=== PATIENT | female | born 1950 | race Caucasian/White ===

== ENCOUNTER → 2017-01-21 | Outpatient (CLI) | payer MEDICARE ==
--- NOTE | 2017-01-22 08:17 | REP ---
RIGHT FOOT: Four views of the right foot are performed. There is nondisplaced fracture at the distal aspect of the 1st proximal phalanx extending into the interphalangeal joint. No other acute fracture or dislocation is seen. Moderate-sized inferior calcaneal spur is present. There is slight narrowing the 1st metatarsophalangeal joint. IMPRESSION: Nondisplaced fracture distal aspect 1st proximal phalanx extending into the interphalangeal joint. Signed by Benjy Morin MD 01/22/2017 04:12 P
== END ==
LOC: M WUC 17:31
PROVIDERS: ATTEND Physician Assistant
DX: S92.414A Nondisplaced fracture of proximal phalanx of right great toe, initial encounter for closed fracture (principal); X58.XXXA Exposure to other specified factors, initial encounter; Y93.9 Activity, unspecified; Y92.9 Unspecified place or not applicable; Y99.8 Other external cause status

== ENCOUNTER 2017-08-28 14:09 | Emergency (ER) | payer MEDICARE ==
[~2017-08-28] VITALS: Ht 167.6 cm; Wt 62.7 kg
[2017-08-28 14:09] VITALS: BP 162/73
[2017-08-28] MEDS ORDERED: PROAAER10 (14:34)
[2017-08-28] MEDS ORDERED: COMBAER6 INH ×2 (14:34→16:47)
[2017-08-28] MEDS ORDERED: DOXY100T16 (14:34)
[2017-08-28] MEDS ORDERED: SYMB16INH INH (14:34)
[2017-08-28] MEDS ORDERED: CEFD1CAP8 PO (16:47)
[2017-08-28] MEDS ORDERED: FLON1SPR (16:47)
== END 2017-08-28 16:57 | disposition home or self-care (01) ==
LOC: M ED 14:09
DX: J45.901 Unspecified asthma with (acute) exacerbation (principal); J01.00 Acute maxillary sinusitis, unspecified; Z79.899 Other long term (current) drug therapy

== ENCOUNTER → 2018-03-29 | Outpatient (CLI) | payer MEDICARE | LOC: M WUC 15:53 | DX: J44.9 Chronic obstructive pulmonary disease, unspecified (principal) | CPT/HCPCS: 71046 ==

== ENCOUNTER 2019-07-15 10:54 | Inpatient (IN) | payer MEDICARE ==
[~2019-07-15] VITALS: Ht 167.6 cm; Wt 49.7 kg
[~2019-07-15 10:54] MED LIST: CEFD1CAP8 PO; COMBAER6 INH; DOXY100T16; FLON1SPR; PROAAER10 INH; SYMB16INH INH
[2019-07-15] MEDS ORDERED: FLUTISP NARES (11:03)
[2019-07-15] MEDS ORDERED: PRED10TA2 PO (11:03)
[2019-07-15] MEDS ORDERED: LISI10TA4 PO (11:03)
[2019-07-15] MEDS ORDERED: MONT10TA2 PO (11:03)
[2019-07-15] MEDS ORDERED: fentaNYL 100 MCG/2 ML INJECTION (J3010) IV ONE (11:30)
[2019-07-15] MEDS ORDERED: NS 500 ML IV ONE ×2 (11:30→12:30)
[2019-07-15] MEDS ORDERED: ONDANSETRON 4MG/2ML VIAL (J2405) IV ONE (11:30)
[2019-07-15 11:45] LABS: BASO # 0.1 10^3/uL (0.0-0.2); BASO % 0.2 % (0.0-1.0); EOS % 0.1 % (0.0-3.0); HEMATOCRIT 40.4 % (36.0-47.0); HEMOGLOBIN 13.8 g/dl (12.0-15.5); LYMPH # 1.8 10^3/uL (1.5-4.5); LYMPH % 7.5 % (24.0-44.0); MEAN CORPUSCULAR HEMOGLOBIN 33.3 pg (27.0-33.0); MEAN CORPUSCULAR HGB CONC 34.2 g/dl (32.0-36.5); MEAN CORPUSCULAR VOLUME 97.3 fl (80.0-96.0); MONO # 1.6 10^3/uL (0.0-0.8); MONO % 6.5 % (0.0-5.0); NEUTROPHILS # 20.9 10^3/uL (1.8-7.7); NEUTROPHILS % 85.2 % (36.0-66.0); PLATELET COUNT, AUTOMATED 282 10^3/uL (150-450); RED BLOOD COUNT 4.15 10^6/uL (4.00-5.40); WHITE BLOOD COUNT 24.5 10^3/uL (4.0-10.0)
[2019-07-15 11:55] LABS: INR 1.19; PROTHROMBIN TIME 14.8 SECONDS (11.8-14.0)
[2019-07-15 11:56] LABS: PARTIAL THROMBOPLASTIN TIME 31.7 SECONDS (25.0-38.4)
--- NOTE | 2019-07-15 12:04 | REP ---
Portable chest, 11:50 a.m., single AP view the patient semi upright: Comparison is the PA and lateral chest of six and 2018. There is chronic interstitial coarsening compatible with chronic lung disease. There are no acute infiltrates or effusions. There are no masses. Lung vaz otherwise clear. Cardiac size is normal. The brandan, mediastinum, skeletal structures are unremarkable. Impression: Chronic mild interstitial coarsening. No acute cardiopulmonary findings. Electronically Signed by Benjy Zhong MD 07/15/2019 11:56 A
[2019-07-15] MEDS ORDERED: ISOVUE-370 76% 100ML VIAL (Q9967) As Ordered ONE (12:12)
[2019-07-15] MEDS ORDERED: MEROPENEM INJ 1 GM in APPROPRIATE DILUENT 1 EA IV ONE (12:15)
[2019-07-15 12:23] LABS: ALBUMIN 3.8 GM/DL (3.2-5.2); ALT/SGPT 15 U/L (12-78); BILIRUBIN,DIRECT 0.2 MG/DL (0.0-0.2); BILIRUBIN,TOTAL 0.8 MG/DL (0.2-1.0); CK-MB VALUE MASS < 1.0 NG/ML (<3.6); CPK CREATINE PHOSPHOKINASE 26 U/L (26-192); LIPASE 62 U/L (73-393); MB/CK RELATIVE INDEX 3.85 (< OR =4); TOTAL PROTEIN 6.4 GM/DL (6.4-8.2); TROPONIN I < 0.02 NG/ML (< 0.10)
--- NOTE | 2019-07-15 13:47 | REP ---
CT ABDOMEN AND PELVIS WITH IV CONTRAST: TECHNIQUE: Axial contrast enhanced images from the lung bases to the pubic symphysis using 100 mL Isovue 370 intravenous contrast material with multiplanar reformations. Visualized lung bases demonstrate no evidence of acute infiltrate. The liver demonstrates multiple subcentimeter hypodensities probably representing tiny cysts or hemangiomas. Spleen demonstrates calcified granulomas. Linear calcifications are seen in the right adrenal gland. I see no evidence of adrenal mass. Pancreas is unremarkable. There is no pancreatic duct dilatation. Tiny subcentimeter hypodensity in each kidney probably represent tiny cysts. There is no hydronephrosis. Atherosclerotic calcification is seen of the abdominal aorta without aneurysm. I see no adenopathy or free air. There is diffuse thickening of the left colon which involves the entire splenic flexure, the entire left colon, extending into the proximal sigmoid colon. This represents nonspecific colitis. Scattered diverticula are seen throughout the sigmoid with multiple diverticula present. There are a few scattered diverticula of the left colon as well. The appendix is normal. I see no definite pelvic mass. There is mild free fluid in the pelvis. Urinary bladder is mildly distended and grossly unremarkable. There are degenerative changes of the spine. IMPRESSION: Diffuse left sided colitis which is nonspecific. There are multiple sigmoid diverticula and a few diverticula of the left colon. I suspect the colitis is due to an inflammatory, infectious or ischemic etiology. Mild free fluid in the pelvis. No free air. Electronically Signed by Benjy Morin MD 07/16/2019 12:07 A
[2019-07-15] MEDS ORDERED: MAALOX 30 ML SUSP *UDC PO PRN (14:00)
[2019-07-15] MEDS ORDERED: MOM 30ML SUSPENSION UDC PO PRN (14:00)
[2019-07-15] MEDS ORDERED: LevoFLOXacin IV 500 MG in APPROPRIATE DILUENT 1 EA IV ONE (14:15)
[2019-07-15] MEDS ORDERED: ACET-683 PO (14:17)
[2019-07-15] MEDS ORDERED: CALC600T18 PO (14:17)
[2019-07-15] MEDS ORDERED: VITMTA PO (14:17)
[2019-07-15] MEDS ORDERED: REST0.05 OU (14:17)
[2019-07-15] MEDS ORDERED: [UNRECOGNIZED DRUG - CODE] PO (14:17)
[2019-07-15] MEDS ORDERED: CVS7.6LO MT (14:17)
[2019-07-15] MEDS ORDERED: MUCI600T31 PO (14:17)
[2019-07-15] MEDS ORDERED: [UNRECOGNIZED DRUG - CODE] PO (14:17)
[2019-07-15] MEDS ORDERED: MORPHINE 4 MG/ML 1ML VIAL/SYRINGE (J2270) IV PRN (15:15)
--- NOTE | 2019-07-15 15:38 | HPEPDOC ---
General Date of Admission 07/15/19 Date of Service: Jul 15, 2019 Primary Care Physician: Carolina Roger H Attending Physician: SAMIR HENAO DO Chief Complaint The patient is a 69-year-old female admitted with a reason for visit of Bloody Stool. Source: Patient, Family History of Present Illness 69 yo female with history of HTN, COPD presented to ED with abdomen pain for 2 days and bright red blood per rectum. Patient states has had weight loss over past 9 month (unintentional) from 132# to 118# (14 pounds). She states 2 days ago had large stool wtih pain and BRBPR. States nothing made it better or worse. States abdomen pain x 2 days comes and goes in waves. Chronic dull achy with intermittent sharp pain that travels from right to left. Yesterday AM had non painful diarrhea x 3 mixed with bright red blood. Today had blood in her underpants and blood with non painful normal sized stool. States subjective fever and chills x 2 days. no nausea or vomiting today but 2 days ago had dry heaves and vomited x 1. States chronic SOB and cough, states no problems . Has not smoked tobacco x 2 days because feeling ill. Home Medications Scheduled Budesonide/Formoterol (Symbicort 160-4.5 Mcg Inhaler) 60 Puff/Inhaler Aers, 2 PUFF INH BID, (Reported) Calcium Carbonate/Vitamin D3 (Calcium 600-Vit D3 400 Tablet) 1 Each Tablet, 1 TAB PO DAILY, (Reported) Cyclosporine (Restasis) 0.05% Droperette, 1 DROP OU BID, (Reported) Fluticasone Propionate (Fluticasone Propionate) 16 Gm [place].susp, 1 SPRAY NARES BID, (Reported) Lactose-Reduced Food (Boost High Protein) 237 Ml Liquid, 237 ML PO QHS, (Reported) Lisinopril (Lisinopril) 10 Mg Tablet, 10 MG PO DAILY, (Reported) Montelukast Sodium (Montelukast Sodium) 10 Mg Tablet, 10 MG PO QHS, (Reported) Multivitamins (Thera M Plus Tablet) 1 Each Tablet, 1 TAB PO DAILY, (Reported) Prednisone (Prednisone) 10 Mg Tablet, 10 MG PO Q2D, (Reported) Scheduled PRN Acetaminophen (Acetaminophen) 500 Mg Tablet, 1,000 MG PO Q6H PRN for PAIN, (Reported) Albuterol Sulfate (Proair Hfa) 108 Mcg/Act Aer, 2 PUFFS INH QID PRN for SHORTNESS OF BREATH, (Reported) Diphenhydramine HCl (Complete Allergy) 25 Mg Capsule, 25 MG PO DAILY PRN for ALLERGIES, (Reported) Guaifenesin (Mucinex) 600 Mg Tab.er.12h, 600 MG PO BID PRN for COUGH, (Reported) Menthol (Cough Drops) 7.6 Mg Lozenge, 7.6 MG MT Q4H PRN for COUGH, (Reported) Allergies Coded Allergies: No Known Allergies (Verified , 09/27/17) Past Medical History Medical History COPD, HTN, Chornic tremors, 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 Past surgical hx: C section, hysterectomy, Benign thyroid tumor removed Family hx: mother from renal failure, father from abdomen aneurysm and recurrent colitis complications (surgical resections) Social Hx: former EtOH use (quit 20 years ago); current tobacco use 1-2 ppd Social History Recent Travel/Sick Contacts: Denies: Recent travel, Recent sick contacts A-FIB/CHADSVASC A-FIB History Current/History of A-Fib/PAF?: No Review of Systems Other systems 10 comprehensive systems reviewed and negative except as per hPI Physical Examination General Exam: Positive: Alert, Cooperative, Moderate Distress Eye Exam: Positive: PERRLA, Conjunctiva & lids normal, EOMI ENT Exam: Positive: Atraumatic, Mucous membr. moist/pink, Pharynx Normal Neck Exam: Positive: Supple, +2 carotid pulse wo bruit, Other (large anterior neck scar) Chest Exam: Positive: Clear to auscultation, Normal air movement, Wheezing (cleared with cough) Heart Exam: Positive: Tachycardic (100-110), Regular Rhythm, Other (no murmur) Telemetry: Positive: Tachycardia Abdomen Exam: Positive: Mass (Right and left lower quadrant, Rebound, guarding present. decreased bowel sounds, severe tenderness in RLQ and LLQ. ) Extremity Exam: Positive: Normal pulses; Negative: Clubbing, Cyanosis, Edema Skin Exam: Positive: Nl turgor and temperature Neuro Exam: Positive: Normal Speech, Strength at 5/5 X4 ext, Normal Tone, Sensation Intact, Cranial Nerves 3-12 NL Psych Exam: Positive: Mental status NL, Mood NL, Anxiety, Memory Intact, Oriented x 3 Other physical findings EKG: NSR CT ABD/PEL: Atherosclerotic calcification is seen of the abdominal aorta without aneurysm. I see no adenopathy or free air. There is diffuse thickening of the left colon which involves the entire splenic flexure, the entire left colon, extending into the proximal sigmoid colon. This represents nonspecific colitis. Scattered diverticula are seen throughout the sigmoid with multiple diverticula present. There are a few scattered diverticula of the left colon as well. The appendix is normal. I see no definite pelvic mass. There is mild free fluid in the pelvis. Urinary bladder is mildly distended and grossly unremarkable. There are degenerative changes of the spine. IMPRESSION: Diffuse left sided colitis which is nonspecific. There are multiple sigmoid diverticula and a few diverticula of the left colon. I suspect the colitis is due to an inflammatory, infectious or ischemic etiology. Mild free fluid in the pelvis. No free air. Vital Signs Vital Signs Date Time Temp Pulse Resp B/P (MAP) Pulse Ox O2 Delivery O2 Flow Rate FiO2 07/15/19 13:20 88 20 105/55 (72) 94 Room Air 07/15/19 10:54 99.7 Laboratory Data Labs 24H Laboratory Tests 2 07/15/19 11:35: Immature Granulocyte % (Auto) 0.5, White Blood Count 24.5H, Red Blood Count 4.15, Hemoglobin 13.8, Hematocrit 40.4, Mean Corpuscular Volume 97.3H, Mean Corpuscular Hemoglobin 33.3H, Mean Corpuscular Hemoglobin Concent 34.2, Red Cell Distribution Width 12.9, Platelet Count 282, Neutrophils (%) (Auto) 85.2H, Lymphocytes (%) (Auto) 7.5L, Monocytes (%) (Auto) 6.5H, Eosinophils (%) (Auto) 0.1, Basophils (%) (Auto) 0.2, Neutrophils # (Auto) 20.9H, Lymphocytes # (Auto) 1.8, Monocytes # (Auto) 1.6H, Eosinophils # (Auto) 0.0, Basophils # (Auto) 0.1, Nucleated Red Blood Cells % (auto) 0.0, Prothrombin Time 14.8H, Prothromb Time International Ratio 1.19, Activated Partial Thromboplast Time 31.7, Lactic Acid Level 1.5, Aspartate Amino Transf (AST/SGOT) 8, Alanine Aminotransferase (ALT /SGPT) 15, Alkaline Phosphatase 82, Total Bilirubin 0.8, Direct Bilirubin 0.2, Total Creatine Kinase 26, Creatine Kinase MB < 1.0, Creatine Kinase MB Relative Index 3.85, Troponin I < 0.02, Total Protein 6.4, Albumin 3.8, Albumin/Globulin Ratio 1.46, Lipase 62L 07/15/19 11:46: POC Glucose (Misc Panel) 109H, POC Sodium (Misc Panel) 136, POC Potassium (Misc Panel) 3.8, POC Chloride (Misc Panel) 104, POC Total CO2 (Misc Panel) 20.0L, POC Blood Urea Nitrogen (Misc Panel 13, POC Ionized Calcium (Misc Panel) 4.6, POC Creatinine (Misc Panel) 0.7, POC Hematocrit (Misc Panel) 39.0 CBC/BMP Laboratory Tests 07/15/19 11:35 Red Blood Count 4.15, Mean Corpuscular Volume 97.3 H, Mean Corpuscular Hemoglobin 33.3 H, Mean Corpuscular Hemoglobin Concent 34.2, Red Cell Distribution Width 12.9, Neutrophils (%) (Auto) 85.2 H, Lymphocytes (%) (Auto) 7.5 L, Monocytes (%) (Auto) 6.5 H, Eosinophils (%) (Auto) 0.1, Basophils (%) (Auto) 0.2, Neutrophils # (Auto) 20.9 H, Lymphocytes # (Auto) 1.8, Monocytes # (Auto) 1.6 H, Eosinophils # (Auto) 0.0, Basophils # (Auto) 0.1 Microbiology Microbiology 07/15/19 Blood Culture, Received Pending 07/15/19 Blood Culture, Received Pending Assessment/Plan Lower GI bleed - serial H/H, IVF Colitis - infectious vs inflamatory - surgery consulted (pain out of proportion to CT - need to r/o ischemic vs microperf). Given meropenem in ED, will start IV flagyl,levaquin in case of colitis from diverticulitis or microperforation. Will check CRP,ESR. Patient has not had colonoscopy in past. Weight loss - unintentional - when current episode resolves, will need colonoscopy in 6-8 weeks HTN - continue home regimen (lisinopril) and monitor renal function COPD without exacerbation - nebs. on chronic low dose steroids at 10mg every other day - will taper to 5mg every other day x 4 days and stop. Tobacco dependence - declines nicotene patch DVT prophylaxis: Enoxaprin on hold due to bleeding; SCD ordered Code status: DNI; spoke with patient and sisters regarding code status. She does not want intubation, Feeding tube or life sustaining treatments. She does want a trial of chest compressions, meds,defibrillation or cardioversion if needed. Plan / VTE VTE Prophylaxis Ordered?: Yes SAMIR HENAO DO Jul 15, 2019 14:08
[2019-07-15 16:00] VITALS: BP 99/53
[2019-07-15] MEDS ORDERED: metroNIDAZOLE 500 MG in APPROPRIATE DILUENT 1 EA IV ONE (16:00)
[2019-07-15 16:47] LABS: ERYTHROCYTE SEDIMENTATION RATE 19 mm/hr (0-30)
--- NOTE | 2019-07-15 17:37 | CR.PDOC ---
General Surgery Consultation Date of Consultation 07/15/19 History and Physical CONSULT REPORT FOR: Dr. Hurt (hospitalist service) REASON FOR CONSULTATION: abdominal pain, colitis HISTORY OF PRESENT ILLNESS: PAST MEDICAL HISTORY: 1. . PAST SURGICAL HISTORY: INCLUDES: 1. . PREVIOUS ANESTHESIA REACTIONS: ALLERGIES: Please see below. FAMILY HISTORY: . HOME MEDICATIONS: Please see below. REVIEW OF SYSTEMS: GENERAL: [Denies chills, reports weight gain, reports feeling febrile yesterday]. HEENT: [Denies blurred vision and double vision. Denies ear symptoms. Denies hoarseness]. NECK: Denies any neck pain]. CARDIOVASCULAR: [Denies chest pain and palpitations]. MUSCULOSKELETAL: [Denies arthralgias, back pain and thrombophlebitis]. SKIN: [Denies rash]. NEUROLOGIC: [Denies headache, stroke and transient ischemic attack]. PSYCHIATRIC: [Denies anxiety and depression]. ENDOCRINE: [Denies thyroid disease]. HEMATOLOGY/ONCOLOGY: [Denies bleeding or clotting disorder]. HEART: [Denies any chest pains, palpitations, paroxysmal dyspnea, orthopnea]. PULMONARY: [Denies chronic cough, dyspnea and wheezing]. GASTROINTESTINAL: [Denies rectal bleeding, family history of colon cancer, constipation, diarrhea, dysphagia, heartburn and jaundice]. GENITOURINARY: [Denies dysuria, frequency, hematuria and nocturia]. ENDOCRINE: [Denies polydipsia, polyphagia, polyuria, heat or cold intolerance]. INFECTIOUS: [Denies any recent upper respiratory tract infection, UTI, need for use of antibiotics]. NUTRITION: [Reports good appetite]. PHYSICAL EXAMINATION: VITALS SIGNS: Please see below. GENERAL APPEARANCE:[Patient seen, laying in bed, awake, alert, and oriented. Comfortable, in no acute distress]. SKIN: [Warm and moist]. HEENT: [Normocephalic, atraumatic. [place] palpebral conjunctiva, anicteric sclerae. Lips and mucosa appear moist]. NECK: [Supple, no thyromegaly. No obvious jugular venous distention]. LUNGS: [Clear to auscultation bilaterally. No wheezing appreciated]. HEART: [No chest wall abnormalities. Regular rate and rhythm with no murmurs appreciated]. ABDOMEN: Abdomen is , soft, . [No hepatosplenomegaly. No umbilical or groin herniations, nondistended. No noticeable rebound or guarding. No grimacing with palpation. No rebound tenderness. No masses appreciated]. EXTREMITIES: [Extremities have no deformities. No edema identified] ANCILLARIES: . LABORATORY DATA: Please see below. IMAGING STUDIES: CT abdomen and pelvis Diffuse left sided colitis which is nonspecific. There are multiple sigmoid diverticula and a few diverticula of the left colon. I suspect the colitis is due to an inflammatory, infectious or ischemic etiology. Mild free fluid in the pelvis. No free air. IMPRESSION AND PLAN: Abdominal pain with bloody stool secondary to left-sided colitis. Probably infectious in nature into ischemic colitis is also a possibility. Rule out C. difficile colitis also. Check stool sample for infection. Continue IV fluid hydration. Once the pain improved skin. The introducer auto intake. One thing I can explain at this moment is to prominence of the right side tenderness. She is also tenderness in the left side that only the left colon seems prominent the involved with the colitis. We will continue to follow along closely. This point I think she can begin clear liquids. Vital Signs Vital Signs Date Time Temp Pulse Resp B/P (MAP) Pulse Ox O2 Delivery O2 Flow Rate FiO2 07/15/19 16:00 100.9 110 22 99/53 (68) 94 07/15/19 13:20 Room Air Laboratory Data Labs 24H Laboratory Tests 2 07/15/19 11:35: Immature Granulocyte % (Auto) 0.5, White Blood Count 24.5H, Red Blood Count 4.15, Hemoglobin 13.8, Hematocrit 40.4, Mean Corpuscular Volume 97.3H, Mean Corpuscular Hemoglobin 33.3H, Mean Corpuscular Hemoglobin Concent 34.2, Red Cell Distribution Width 12.9, Platelet Count 282, Neutrophils (%) (Auto) 85.2H, Lymphocytes (%) (Auto) 7.5L, Monocytes (%) (Auto) 6.5H, Eosinophils (%) (Auto) 0.1, Basophils (%) (Auto) 0.2, Neutrophils # (Auto) 20.9H, Lymphocytes # (Auto) 1.8, Monocytes # (Auto) 1.6H, Eosinophils # (Auto) 0.0, Basophils # (Auto) 0.1, Nucleated Red Blood Cells % (auto) 0.0, Erythrocyte Sedimentation Rate 19, Prothrombin Time 14.8H, Prothromb Time International Ratio 1.19, Activated Partial Thromboplast Time 31.7, Lactic Acid Level 1.5, Aspartate Amino Transf (AST/SGOT) 8, Alanine Aminotransferase (ALT/SGPT) 15, Alkaline Phosphatase 82, Total Bilirubin 0.8, Direct Bilirubin 0.2, Total Creatine Kinase 26, Creatine Kinase MB < 1.0, Creatine Kinase MB Relative Index 3.85, Troponin I < 0.02, C- Reactive Protein, Quantitative 18.30H, Total Protein 6.4, Albumin 3.8, Alb umin/Globulin Ratio 1.46, Lipase 62L 07/15/19 11:46: POC Glucose (Misc Panel) 109H, POC Sodium (Misc Panel) 136, POC Potassium (Misc Panel) 3.8, POC Chloride (Misc Panel) 104, POC Total CO2 (Misc Panel) 20.0L, POC Blood Urea Nitrogen (Misc Panel 13, POC Ionized Calcium (Misc Panel) 4.6, POC Creatinine (Misc Panel) 0.7, POC Hematocrit (Misc Panel) 39.0 CBC/BMP Laboratory Tests 07/15/19 11:35 Red Blood Count 4.15, Mean Corpuscular Volume 97.3 H, Mean Corpuscular Hemoglobin 33.3 H, Mean Corpuscular Hemoglobin Concent 34.2, Red Cell Distribution Width 12.9, Neutrophils (%) (Auto) 85.2 H, Lymphocytes (%) (Auto) 7.5 L, Monocytes (%) (Auto) 6.5 H, Eosinophils (%) (Auto) 0.1, Basophils (%) (Auto) 0.2, Neutrophils # (Auto) 20.9 H, Lymphocytes # (Auto) 1.8, Monocytes # (Auto) 1.6 H, Eosinophils # (Auto) 0.0, Basophils # (Auto) 0.1 Microbiology Microbiology 07/15/19 Blood Culture, Received Pending 07/15/19 Blood Culture, Received Pending Home Medications Scheduled Budesonide/Formoterol (Symbicort 160-4.5 Mcg Inhaler) 60 Puff/Inhaler Aers, 2 PUFF INH BID, (Reported) Calcium Carbonate/Vitamin D3 (Calcium 600-Vit D3 400 Tablet) 1 Each Tablet, 1 TAB PO DAILY, (Reported) Cyclosporine (Restasis) 0.05% Drope[place], 1 DROP OU BID, (Reported) Fluticasone Propionate (Fluticasone Propionate) 16 Gm [place].susp, 1 SPRAY NARES BID, (Reported) Lactose-Reduced Food (Boost High Protein) 237 Ml Liquid, 237 ML PO QHS, (Re ported) Lisinopril (Lisinopril) 10 Mg Tablet, 10 MG PO DAILY, (Reported) Montelukast Sodium (Montelukast Sodium) 10 Mg Tablet, 10 MG PO QHS, (Reported) Multivitamins (Thera M Plus Tablet) 1 Each Tablet, 1 TAB PO DAILY, (Reported) Prednisone (Prednisone) 10 Mg Tablet, 10 MG PO Q2D, (Reported) Scheduled PRN Acetaminophen (Acetaminophen) 500 Mg Tablet, 1,000 MG PO Q6H PRN for PAIN, (Reported) Albuterol Sulfate (Proair Hfa) 108 Mcg/Act Aer, 2 PUFFS INH QID PRN for SHORTNESS OF BREATH, (Reported) Diphenhydramine HCl (Complete Allergy) 25 Mg Capsule, 25 MG PO DAILY PRN for A LLERGIES, (Reported) Guaifenesin (Mucinex) 600 Mg Tab.er.12h, 600 MG PO BID PRN for COUGH, (Reported) Menthol (Cough Drops) 7.6 Mg Lozenge, 7.6 MG MT Q4H PRN for COUGH, (Reported) Allergies Coded Allergies: No Known Allergies (Verified , 09/27/17) YOEL RESTREPO MD Jul 15, 2019 17:37
[2019-07-15] MEDS: metroNIDAZOLE 500 MG in APPROPRIATE DILUENT 1 EA IV SCH (17:50)
[2019-07-15 18:00] VITALS: BP 97/71
[2019-07-15] MEDS: ACETAMINOPHEN TAB 650MG DOSE (2X325MG) PO PRN (18:00)
--- NOTE | 2019-07-15 18:53 | ECGEPIP ---
[facility] - ED Test Date: 2019-07-15 Pat Name: ARABELLA SIMON Department: Room: - Gender: Female Coal [employer]: liliana : 1950 Requested By: Jarred Vergara Order Number: [id number] Reading MD: Kulwant Ortega Measurements Intervals [place] Rate: 122 P: 78 IN: 140 QRS: 45 QRSD: 78 T: 76 QT: 289 QTc: 412 Interpretive Statements SINUS TACHYCARDIA RATE CHANGE COMPARED TO 09/18/17 Electronically Signed on 07-15-2019 18:53:12 EDT by Kulwant Ortega
[2019-07-15] MEDS ORDERED: NS 500 ML IV PRN (19:15)
[2019-07-15 19:30] LABS: HEMATOCRIT 33.9 % (36.0-47.0); HEMOGLOBIN 11.1 g/dl (12.0-15.5)
[2019-07-15] MEDS: NS 1,000 ML IV SCH (19:37)
[2019-07-15] MEDS: DOCUSATE SODIUM 100 MG CAP PO SCH (21:14)
[2019-07-15 22:00] VITALS: BP 101/74
[2019-07-16] MEDS: metroNIDAZOLE 500 MG in APPROPRIATE DILUENT 1 EA IV SCH ×3 (01:59→18:10)
[2019-07-16 02:00] VITALS: BP 145/62
[2019-07-16] MEDS: ACETAMINOPHEN TAB 650MG DOSE (2X325MG) PO PRN (05:04)
[2019-07-16 06:00] VITALS: BP 145/62
[2019-07-16 06:11] LABS: HEMOGLOBIN 10.7 g/dl (12.0-15.5); MEAN CORPUSCULAR HEMOGLOBIN 32.4 pg (27.0-33.0); MEAN CORPUSCULAR HGB CONC 33.4 g/dl (32.0-36.5); PLATELET COUNT, AUTOMATED 220 10^3/uL (150-450)
[2019-07-16 06:43] LABS: ALBUMIN 2.7 GM/DL (3.2-5.2); ALT/SGPT 10 U/L (12-78); BILIRUBIN,TOTAL 0.8 MG/DL (0.2-1.0); BLOOD UREA NITROGEN 10 MG/DL (7-18); CALCIUM LEVEL 8.1 MG/DL (8.8-10.2); CARBON DIOXIDE LEVEL 23 MEQ/L (21-32); CHLORIDE LEVEL 110 MEQ/L (98-107); CREATININE FOR GFR 0.64 MG/DL (0.55-1.30); GLOMERULAR FILTRATION RATE > 60.0 (>45); GLUCOSE, FASTING 100 MG/DL (70-100); POTASSIUM SERUM 3.6 MEQ/L (3.5-5.1); SODIUM LEVEL 138 MEQ/L (136-145); TOTAL PROTEIN 5.4 GM/DL (6.4-8.2)
[2019-07-16] MEDS ORDERED: guaiFENesin ER 600 MG TAB PO PRN (07:30)
[2019-07-16] MEDS: SYMBICORT 160/4.5MCG INHALER 6GM INH SCH ×2 (07:42→20:35)
[2019-07-16] MEDS: LISINOPRIL 10 MG TAB PO SCH (09:00)
[2019-07-16] MEDS ORDERED: ENOXAPARIN 40 MG/0.4 ML SYRINGE (J1650) SC SCH (09:00)
[2019-07-16] MEDS ORDERED: CALCIUM/VITAMIN D 500 MG TAB PO SCH (09:00)
[2019-07-16] MEDS: MULTIVITAMINS/MINERALS THERAP 1 TAB PO SCH (09:40)
[2019-07-16] MEDS: CALCIUM/VITAMIN D 500 MG TAB PO SCH (09:40)
[2019-07-16] MEDS: DOCUSATE SODIUM 100 MG CAP PO SCH ×2 (09:40→20:19)
[2019-07-16] MEDS: NS 1,000 ML IV SCH (09:41)
[2019-07-16] MEDS: NICOTINE 21MG/24HR 1 EA TRANSDERMAL TD SCH (09:41)
[2019-07-16] MEDS: FLUTICASONE PROP 0.05% NASAL SPRAY 16 GM (FLONASE) NARES SCH (09:44)
[2019-07-16 10:00] VITALS: BP 102/58
--- NOTE | 2019-07-16 11:47 | IPNPDOC ---
Subjective General Date/Time Seen The patient was seen on 07/16/19 at 11:43. Subject Chief Complaint/History The patient is a 69-year-old female admitted with a reason for visit of Gi Bleeding,Leukocystosis. Patient looks more comfortable, has not had any vomiting nor bowel movements since admission, hemodynamically stable, (+)low grade fever Current Medications Current Medications Current Medications Medications (Trade) Dose Ordered Sig/Grey Route PRN Reason Start Time Stop Time Status Last Admin Dose Admin Acetaminophen (Tylenol Tab) 650 mg Q4H PRN PO PAIN OR FEVER 07/15/19 14:00 07/16/19 05:04 Al Hydrox/Mg Hydrox/Simethicone (Mylanta) 30 ml DAILY PRN PO DYSPEPSIA 07/15/19 14:00 Albuterol Sulfate (Proventil, Ventolin Hfa) 2 puff Q6HP PRN INH SHORTNESS OF BREATH 07/15/19 21:45 Budesonide/ Formoterol Fumarate (Symbicort 160/ 4.5mcg) 2 puff BID INH 07/16/19 09:00 07/16/19 07:42 Calcium/Vitamin D (Oscal D) 500 mg DAILY PO 07/16/19 09:00 07/16/19 09:40 Calcium/Vitamin D (Oscal D) 600 mg DAILY PO 07/16/19 09:00 07/16/19 09:09 DC Docusate Sodium (Colace) 100 mg BID PO 07/15/19 21:00 07/16/19 09:40 Enoxaparin Sodium (Lovenox) 40 mg DAILY SC 07/16/19 09:00 07/16/19 09:00 DC Fluticasone Propionate (Flonase 0.05% Nasal [place]) 2 spray DAILY NARES 07/16/19 09:00 07/16/19 09:44 Guaifenesin (Mucinex Tab Er) 600 mg BID PRN PO COUGH 07/16/19 07:30 Home Med (Med Rec Complete!) ASDIRECTED XX 07/15/19 14:30 07/15/19 14:30 DC Levofloxacin 500 mg/IV Miscellaneous Supplies 100 ml @ 100 mls/hr Q24H IV 07/16/19 15:00 Lisinopril (Prinivil) 10 mg DAILY PO 07/16/19 09:00 Magnesium Hydroxide (Milk Of Magnesia) 30 ml DAILY PRN PO CONSTIPATION 07/15/19 14:00 Metronidazole 500 mg/IV Miscellaneous Supplies 100 ml @ 100 mls/hr Q8H IV 07/15/19 18:00 07/16/19 11:41 Montelukast Sodium (Singulair) 10 mg QHS PO 07/16/19 21:00 Morphine Sulfate (Morphine Sulfate Inj) 1 mg Q4HP PRN IV PAIN 07/15/19 15:15 Multivitamins (Theragram-M) 1 tab DAILY PO 07/16/19 09:00 07/16/19 09:40 Nicotine (Nicoderm Cq 21mg) 1 patch DAILY TD 07/16/19 09:00 07/16/19 09:41 Sodium Chloride 500 ml @ 0 mls/hr BOLUS PRN IV SBP under 95 07/15/19 19:15 Sodium Chloride 1,000 ml @ 60 mls/hr [id number] IV 07/15/19 14:15 07/16/19 09:41 Allergies Coded Allergies: No Known Allergies (Verified , 09/27/17) Objective Physical Examination Examination GENERAL APPEARANCE:[Patient seen, laying in bed, awake, alert, and oriented. Comfortable, in no acute distress]. SKIN: [Warm and moist]. HEENT: [Normocephalic, atraumatic. [place] palpebral conjunctiva, anicteric sclerae. Lips and mucosa appear moist]. NECK: [Supple, no thyromegaly. No obvious jugular venous distention]. LUNGS: [Clear to auscultation bilaterally. No wheezing appreciated]. HEART: [No chest wall abnormalities. Regular rate and rhythm with no murmurs appreciated]. ABDOMEN: Abdomen is less distended today. Minimal discomfort on palpation at right lower quadrant area, left lower quadrant area. No guarding. EXTREMITIES: [Extremities have no deformities. No edema identified]. Vital Signs Vital Signs Date Time Temp Pulse Resp B/P (MAP) Pulse Ox O2 Delivery O2 Flow Rate FiO2 07/16/19 09:00 104/50 07/16/19 02:00 98.7 82 18 95 07/15/19 13:20 Room Air I&Os I&O- Last 24 Hours up to 6 AM 07/16/19 06:00 Intake Total 1810 ml Output Total 500 ml Balance 1310 ml Laboratory Data Labs 24H Laboratory Tests 2 07/15/19 11:46: POC Glucose (Misc Panel) 109H, POC Sodium (Misc Panel) 136, POC Potassium (Misc Panel) 3.8, POC Chloride (Misc Panel) 104, POC Total CO2 (Misc Panel) 20.0L, POC Blood Urea Nitrogen (Misc Panel 13, POC Ionized Calcium (Misc Panel) 4.6, POC Creatinine (Misc Panel) 0.7, POC Hematocrit (Misc Panel) 39.0 07/16/19 05:54: Nucleated Red Blood Cells % (auto) 0.0, Anion Gap 5L, Glomerular Filtration Rate > 60.0, Blood Urea Nitrogen 10, Creatinine 0.64, Sodium Level 138, Potassium L evel 3.6, Chloride Level 110H, Carbon Dioxide Level 23, Calcium Level 8.1L, Aspartate Amino Transf (AST/SGOT) 12, Alanine Aminotransferase (ALT/SGPT) 10L, Alkaline Phosphatase 68, Total Bilirubin 0.8, Total Protein 5.4L, Albumin 2.7#L, Albumin/Globulin Ratio 1.00 CBC/BMP Laboratory Tests 07/15/19 19:23 07/16/19 05:54 Red Blood Count 3.30 L, Mean Corpuscular Volume 97.0 H, Mean Corpuscular Hemoglobin 32.4, Mean Corpuscular Hemoglobin Concent 33.4, Red Cell Distribution Width 13.0, Calcium Level 8.1 L, Aspartate Amino Transf (AST/SGOT) 12, Alanine Aminotransferase (ALT/SGPT) 10 L, Alkaline Phosphatase 68, Total Bilirubin 0.8, Total Protein 5.4 L, Albumin 2.7 #L Microbiology Microbiology 07/15/19 Blood Culture, Received Pending 07/15/19 Blood Culture - Preliminary, Resulted No growth after 24 hours . All specim... Impression left sided colitis infectious etiology more likely vs ischemic. right side abdominal pain, not clear on etiology. I reviewed the CT scan images. Appendix looks normal, cecum and ascending colon with stools on them. No signs of inflammation at the right side, left sided colitis from top of descending colon to mid sigmoid. continbue abx will advance to soft diet, if tolerated prob can advance to low residue diet suggest interval colonoscopy at least 6 weeks after discharge to further elucidate on etiology of colitis. feel free to call me back if there are changes in her status otherwise will sign off Plan / VTE VTE Prophylaxis Ordered?: Yes YOEL RESTREPO MD Jul 16, 2019 11:47
[2019-07-16 14:00] VITALS: BP 118/55
[2019-07-16] MEDS ORDERED: LevoFLOXacin IV 500 MG in APPROPRIATE DILUENT 1 EA IV SCH (15:00)
[2019-07-16] MEDS: ALBUTEROL 90 MCG/ACT 8GM HFA INHALER INH PRN (17:44)
[2019-07-16 18:00] VITALS: BP 115/55
--- NOTE | 2019-07-16 18:08 | IPNPDOC ---
Text Note Date of Service The patient was seen on 07/16/19. NOTE S: abd pain better. tolerating soft diet. had smear of stool today but no bright red blood. patient states blood on tissue when wiping. She states no N, noV, no fever and wants to go home, wants shower O: Vitals as below General: pleasant NAD AAOx3 HRRR LCTA Abdomen: soft, no mass, no guarding, tenderness still present in RLQ/LLQ but no rebound, NABS Ext No edema A/P: Lower GI bleed resolved and due to colitis Colitis -most likely infectious, not ischemic -diet advanced to soft (low residue). Continue levaquin/flagyl. will need colonoscopy 6 week after colitis resolved. Surgery assistance appreciated. Weight loss - unintentional - when current episode resolves, will need colonoscopy in 6-8 weeks HTN - continue home regimen (lisinopril) and monitor renal function COPD without exacerbation - nebs. on chronic low dose steroids at 10mg every other day - will taper to 5mg every other day x 4 days and stop. Tobacco dependence - declines nicotene patch Disposition - anticipate DC when WBC normalizes and abdomen pain improves. PT/OT consulted VS,Jeimy, I+O VS, Davee, I+O Laboratory Tests 07/15/19 19:23 07/16/19 05:54 Red Blood Count 3.30 L, Mean Corpuscular Volume 97.0 H, Mean Corpuscular Hemoglobin 32.4, Mean Corpuscular Hemoglobin Concent 33.4, Red Cell Distribution Width 13.0, Calcium Level 8.1 L, Aspartate Amino Transf (AST/SGOT) 12, Alanine Aminotransferase (ALT/SGPT) 10 L, Alkaline Phosphatase 68, Total Bilirubin 0.8, Total Protein 5.4 L, Albumin 2.7 #L Vital Signs Date Time Temp Pulse Resp B/P (MAP) Pulse Ox O2 Delivery O2 Flow Rate FiO2 07/16/19 10:00 99.8 85 18 102/58 (73) 94 07/15/19 13:20 Room Air I&O- Last 24 Hours up to 6 AM 07/16/19 06:00 Intake Total 1810 ml Output Total 500 ml Balance 1310 ml SAMIR HENAO DO Jul 16, 2019 13:30
[2019-07-16] MEDS: MONTELUKAST 10 MG TAB PO SCH (20:19)
[2019-07-16 22:00] VITALS: BP 109/50
[2019-07-17 02:00] VITALS: BP 106/53
[2019-07-17] MEDS: metroNIDAZOLE 500 MG in APPROPRIATE DILUENT 1 EA IV SCH (02:02)
[2019-07-17 06:00] VITALS: BP 116/51
[2019-07-17 06:18] LABS: HEMATOCRIT 29.5 % (36.0-47.0); HEMOGLOBIN 9.9 g/dl (12.0-15.5); MEAN CORPUSCULAR HGB CONC 33.6 g/dl (32.0-36.5); MEAN CORPUSCULAR VOLUME 95.5 fl (80.0-96.0); PLATELET COUNT, AUTOMATED 203 10^3/uL (150-450); RED BLOOD COUNT 3.09 10^6/uL (4.00-5.40); WHITE BLOOD COUNT 14.8 10^3/uL (4.0-10.0)
[2019-07-17 07:11] LABS: ALBUMIN 2.5 GM/DL (3.2-5.2); ALT/SGPT 11 U/L (12-78); BILIRUBIN,TOTAL 0.5 MG/DL (0.2-1.0); BLOOD UREA NITROGEN 4 MG/DL (7-18); CALCIUM LEVEL 7.6 MG/DL (8.8-10.2); CARBON DIOXIDE LEVEL 21 MEQ/L (21-32); CHLORIDE LEVEL 109 MEQ/L (98-107); CREATININE FOR GFR 0.53 MG/DL (0.55-1.30); GLOMERULAR FILTRATION RATE > 60.0 (>45); GLUCOSE, FASTING 93 MG/DL (70-100); POTASSIUM SERUM 3.1 MEQ/L (3.5-5.1); SODIUM LEVEL 139 MEQ/L (136-145); TOTAL PROTEIN 4.9 GM/DL (6.4-8.2)
[2019-07-17] MEDS: SYMBICORT 160/4.5MCG INHALER 6GM INH SCH ×2 (07:16→21:41)
[2019-07-17] MEDS: LevoFLOXacin 500 MG TABLET PO SCH (08:05)
[2019-07-17] MEDS: metroNIDAZOLE (FLAGYL) 500 MG TAB PO SCH ×3 (08:05→22:57)
[2019-07-17] MEDS: MULTIVITAMINS/MINERALS THERAP 1 TAB PO SCH (08:05)
[2019-07-17] MEDS: DOCUSATE SODIUM 100 MG CAP PO SCH ×2 (08:05→20:27)
[2019-07-17] MEDS: CALCIUM/VITAMIN D 500 MG TAB PO SCH (08:06)
[2019-07-17] MEDS: FLUTICASONE PROP 0.05% NASAL SPRAY 16 GM (FLONASE) NARES SCH (08:06)
[2019-07-17] MEDS: NICOTINE 21MG/24HR 1 EA TRANSDERMAL TD SCH (08:07)
[2019-07-17] MEDS: LISINOPRIL 10 MG TAB PO SCH (08:09)
[2019-07-17] MEDS: POTASSIUM CHLORIDE 10 MEQ SR TABLET PO SCH ×2 (13:01→20:27)
[2019-07-17] MEDS: ACETAMINOPHEN TAB 650MG DOSE (2X325MG) PO PRN ×2 (13:04→22:59)
[2019-07-17 14:00] VITALS: BP 94/46
[2019-07-17 16:01] LABS: HEMATOCRIT 35.3 % (36.0-47.0)
--- NOTE | 2019-07-17 16:05 | IPNPDOC ---
Text Note Date of Service The patient was seen on 07/17/19. NOTE S: patient took shower this AM. States 1-2 spots of blood on underwear but none with bowel movement today. States no N, no V. no CP, no SOB. states tolerating soft diet. states right ear chronic pressure for months and feels drainage in back of throat from ear. states decreased hearing in right ear. no fever. States has seen PCP regarding issue . Patient states just feels like it needs to be drained or popped. O: Vitals as below General: pleasant NAD AAOx3 HEENT: right TM with sclerotic TM and effusion; no erythema; left TM occluded by cerumen. HRRR no murmur LCTA no W/R/R Ext: no edema Abdomen : soft, NABS, mild RLQ/LLQ tenderness but no mass, no rebound, no g uarding no rigidity A/P: Anemia due to Lower GI bleed from colitis - monitor H/H q12h. transfuse if symptomatic or further drop in H/H Colitis -most likely infectious, not ischemic -diet advanced to low residue. change IV to po levaquin/flagyl. will need colonoscopy 6 week after colitis resolved. Surgery assistance appreciated. Possible d/c tomorrow if remains hemodynamically stable . Weight loss - unintentional - when current episode resolves, will need colonoscopy in 6-8 weeks HTN - continue home regimen (lisinopril) and monitor renal function COPD without exacerbation - tapered off low dose prednisone. monitor. Tobacco dependence - declines nicotene patch Right ear effusion/sclerosis of TM - needs to follow up with PCP for referral to ENT Disposition - possible d/c home tomorrow. PT/OT consulted addendum 1500: called to floor to re=examined patient because pain worse (no fever, No n, no Vomiting). Patient states she has been up walking the halls twice this afternoon. Sister came for visit and was insisting to the patient that she needs exploratory. patient states after walk and visit with sister, had low blood pressure and RLQ dull abdomen pain . Exam: afebrile, HRRR, LCTA , Abdomen: soft NT ND and no reboudn, no rigidity. Reassurance to patient and continue to monitor. VS,Fishbone, I+O VS, Fishbone, I+O Laboratory Tests 07/17/19 05:51 Red Blood Count 3.09 L, Mean Corpuscular Volume 95.5, Mean Corpuscular H emoglobin 32.0, Mean Corpuscular Hemoglobin Concent 33.6, Red Cell Distribution Width 12.6, Calcium Level 7.6 L, Aspartate Amino Transf (AST/SGOT) 10, Alanine Aminotransferase (ALT/SGPT) 11 L, Alkaline Phosphatase 76, Total Bilirubin 0.5, Total Protein 4.9 L, Albumin 2.5 L Vital Signs Date Time Temp Pulse Resp B/P (MAP) Pulse Ox O2 Delivery O2 Flow Rate FiO2 07/17/19 06:00 98.3 85 20 116/51 (72) 93 07/15/19 13:20 Room Air I&O- Last 24 Hours up to 6 AM 07/17/19 06:00 Intake Total 1918 ml Output Total 400 ml Balance 1518 ml SAMIR HENAO DO Jul 17, 2019 07:58
[2019-07-17 16:45] LABS: HEMOGLOBIN 11.9 g/dl (12.0-15.5)
[2019-07-17] MEDS: MONTELUKAST 10 MG TAB PO SCH (20:27)
[2019-07-17 22:00] VITALS: BP 106/50
[2019-07-18 06:00] VITALS: BP 103/53
[2019-07-18 06:30] LABS: HEMATOCRIT 30.3 % (36.0-47.0); HEMOGLOBIN 10.1 g/dl (12.0-15.5); MEAN CORPUSCULAR HEMOGLOBIN 33.3 pg (27.0-33.0); MEAN CORPUSCULAR HGB CONC 33.3 g/dl (32.0-36.5); PLATELET COUNT, AUTOMATED 228 10^3/uL (150-450); RED BLOOD COUNT 3.03 10^6/uL (4.00-5.40); WHITE BLOOD COUNT 11.1 10^3/uL (4.0-10.0)
[2019-07-18] MEDS: LevoFLOXacin 500 MG TABLET PO SCH (06:47)
[2019-07-18] MEDS: metroNIDAZOLE (FLAGYL) 500 MG TAB PO SCH (06:47)
[2019-07-18 06:55] LABS: BLOOD UREA NITROGEN 7 MG/DL (7-18); CARBON DIOXIDE LEVEL 23 MEQ/L (21-32); CHLORIDE LEVEL 111 MEQ/L (98-107); CREATININE FOR GFR 0.57 MG/DL (0.55-1.30); GLOMERULAR FILTRATION RATE > 60.0 (>45); GLUCOSE, FASTING 93 MG/DL (70-100); POTASSIUM SERUM 3.9 MEQ/L (3.5-5.1); SODIUM LEVEL 143 MEQ/L (136-145)
[2019-07-18] MEDS: SYMBICORT 160/4.5MCG INHALER 6GM INH SCH (08:08)
[2019-07-18] MEDS: ALBUTEROL 90 MCG/ACT 8GM HFA INHALER INH PRN (08:08)
[2019-07-18] MEDS: NICOTINE 21MG/24HR 1 EA TRANSDERMAL TD SCH (09:00)
[2019-07-18] MEDS: POTASSIUM CHLORIDE 10 MEQ SR TABLET PO SCH (09:23)
[2019-07-18] MEDS: CALCIUM/VITAMIN D 500 MG TAB PO SCH (09:23)
[2019-07-18] MEDS: DOCUSATE SODIUM 100 MG CAP PO SCH (09:23)
[2019-07-18 09:24] VITALS: BP 126/62
[2019-07-18] MEDS: FLUTICASONE PROP 0.05% NASAL SPRAY 16 GM (FLONASE) NARES SCH (09:24)
[2019-07-18] MEDS: LISINOPRIL 10 MG TAB PO SCH (09:24)
[2019-07-18] MEDS: MULTIVITAMINS/MINERALS THERAP 1 TAB PO SCH (09:24)
[2019-07-18] MEDS ORDERED: LEVA1TAB2 PO (09:44)
[2019-07-18] MEDS ORDERED: FLAG500T PO (09:44)
--- NOTE | 2019-07-18 13:11 | DS.PDOC ---
Discharge Summary General Date of Admission Jul 15, 2019 at 14:00 Date of Discharge 07/18/19 Primary Care Physician: Arsen Roger Attending Physician: SAMIR HENAO DO Specialist/Consultants Involve: YOEL RESTREPO MD Discharge Summary PROCEDURES PERFORMED DURING STAY: none ADMITTING DIAGNOSES: Lower GI bleed Colitis Weight loss - unintentional HTN COPD without exacerbation Tobacco dependence DISCHARGE DIAGNOSES: acute blood loss Anemia due to Lower GI bleed from colitis Colitis probable infectious. Weight loss - unintentional - unknown etiology HTN - essential COPD without exacerbation Tobacco dependence - Right ear effusion/sclerosis of TM - COMPLICATIONS/CHIEF COMPLAINT: Gi Bleeding,Leukocystosis. HISTORY OF PRESENT ILLNESS: 69 yo female with history of HTN, COPD presented to ED with abdomen pain for 2 days and bright red blood per rectum. Patient states has had weight loss over past 9 month (unintentional) from 132# to 118# (14 pounds). She states 2 days ago had large stool wtih pain and BRBPR. States nothing made it better or worse. States abdomen pain x 2 days comes and goes in waves. Chronic dull achy with intermittent sharp pain that travels from right to left. Yesterday AM had non painful diarrhea x 3 mixed with bright red blood. Today had blood in her underpants and blood with non painful normal sized stool. States subjective fever and chills x 2 days. no nausea or vomiting today but 2 days ago had dry heaves and vomited x 1. States chronic SOB and cough, states no problems . Has not smoked tobacco x 2 days because feeling ill. See H&P for details HOSPITAL COURSE: Patient admitted, palced on IV levaquin and IV flagyl. Abd pain improved. no further LGI bleeding. Antibiotics changed to oral 24 hour prior to discharge with continued improvement. Colitis most likely infectious, not ischemic in etiology. Surgery consutled and will need colonoscopy in 6 weeks.As for her HTN, BP was monitored and lisinopril held for hypotension; She complained of chronic right ear pain and drainage. Will need outpatient evaluation at ENT office; As for her unintentional weight loss, unknown etiology (possible underlying ulc colitis, Malignancy, diverticulitis, etc). will need follo w up colonoscopy in 4-6 weeks. As fo COPD, no exacerbation during hospitalization, tapered off chronic low dose prednisone and doing well. She would benefit from outpatient pulm rehab. Patient has also been counselled on tobacco cessation. DISCHARGE MEDICATIONS: Please see below. ALLERGIES: Please see below. PHYSICAL EXAMINATION ON DISCHARGE: VITAL SIGNS: Please see below. GENERAL: pleasant NAD AAOx3 HEENT: right TM with otosclerosis and mild effusion; left TM occluded by cerumen HRRR LCTA Ext no edema Abdomen Soft NT ND NABS (improved from admission) LABORATORY DATA: Please see below. IMAGING: CT ABD/PEL Diffuse left sided colitis which is nonspecific. There are multiple sigmoid diverticula and a few diverticula of the left colon. Mild free fluid in the pelvis. No free air. PROGNOSIS: good ACTIVITY: as tolerated DIET: regular as tolerated DISCHARGE PLAN: home DISCHARGE INSTRUCTIONS: Quit smoking stop steroids unless COPD flare and instructed by PCP to restart steroids Check your blood pressure every morning, if SBP less than 110 - do not take lisinopril (blood pressure medication) finished your antibiotics completely If abdomen pain returns, proceed to ED or evaluation by PCP/surgeon Follow up with Dr Roger in 5-7 days for recheck of COPD, abdomen and coordination of care/referrals Follow up with Dr Restrepo in 4 weeks for evaluation and to scheduled colonoscopy at week 6. ITEMS TO FOLLOWUP ON ON OUTPATIENT: outpatient referral from PCP for ENT Outpatient referral from PCP for pulmonary rehab colonoscopy in [address] Restrepo office DISCHARGE CONDITION: stable TIME SPENT ON DISCHARGE: 40 minutes. Vital Signs/I&Os Vital Signs Date Time Temp Pulse Resp B/P (MAP) Pulse Ox O2 Delivery O2 Flow Rate FiO2 07/18/19 09:24 126/62 07/18/19 06:00 96.6 82 18 93 07/15/19 13:20 Room Air I&O- Last 24 Hours up to 6 AM 07/18/19 06:00 Intake Total 986 ml Output Total 500 ml Balance 486 ml Laboratory Data Labs 24H Laboratory Tests 2 07/18/19 06:06: Nucleated Red Blood Cells % (auto) 0.0, Anion Gap 9, Glomerular Filtration Rate > 60.0, Blood Urea Nitrogen 7#, Creatinine 0.57, Sodium Level 143, Potassium Level 3.9#, Chloride Level 111H, Carbon Dioxide Level 23, Calcium Level 8.0L CBC/BMP Laboratory Tests 07/17/19 15:50 07/18/19 06:06 Red Blood Count 3.03 L, Mean Corpuscular Volume 100.0 H, Mean Corpuscular Hemoglobin 33.3 H, Mean Corpuscular Hemoglobin Concent 33.3, Red Cell Distribution Width 12.9, Calcium Level 8.0 L Microbiology Microbiology 07/15/19 Blood Culture - Preliminary, Resulted No Growth after 48 hours. All Specime... 07/15/19 Blood Culture - Preliminary, Resulted No Growth after 48 hours. All Specime... 07/16/19 Gastrointestinal Tract Panel (PCR) - Final, Complete Discharge Medications Scheduled Budesonide/Formoterol (Symbicort 160-4.5 Mcg Inhaler) 60 Puff/Inhaler Aers, 2 PUFF INH BID, (Reported) Calcium Carbonate/Vitamin D3 (Calcium 600-Vit D3 400 Tablet) 1 Each Tablet, 1 TAB PO DAILY, (Reported) Cyclosporine (Restasis) 0.05% Droperette, 1 DROP OU BID, (Reported) Fluticasone Propionate (Fluticasone Propionate) 16 Gm Lamont.susp, 1 SPRAY NARES BID, (Reported) Lactose-Reduced Food (Boost High Protein) 237 Ml Liquid, 237 ML PO QHS, (Reported) Levofloxacin (Levaquin) 500 Mg Tablet, 500 MG PO DAILY@06 Lisinopril (Lisinopril) 10 Mg Tablet, 10 MG PO DAILY, (Reported) Metronidazole (Flagyl) 500 Mg Tablet, 500 MG PO Q8H Montelukast Sodium (Montelukast Sodium) 10 Mg Tablet, 10 MG PO QHS, (Reported) Multivitamins (Thera M Plus Tablet) 1 Each Tablet, 1 TAB PO DAILY, (Reported) Scheduled PRN Acetaminophen (Acetaminophen) 500 Mg Tablet, 1,000 MG PO Q6H PRN for PAIN, (Reported) Albuterol Sulfate (Proair Hfa) 108 Mcg/Act Aer, 2 PUFFS INH QID PRN for SHORTNESS OF BREATH, (Reported) Diphenhydramine HCl (Complete Allergy) 25 Mg Capsule, 25 MG PO DAILY PRN for ALLERGIES, (Reported) Guaifenesin (Mucinex) 600 Mg Tab.er.12h, 600 MG PO BID PRN for COUGH, (Reported) Menthol (Cough Drops) 7.6 Mg Lozenge, 7.6 MG MT Q4H PRN for COUGH, (Reported) Allergies Coded Allergies: No Known Allergies (Verified , 09/27/17) SAMIR HENAO DO Jul 18, 2019 09:45
== END 2019-07-18 11:10 | disposition home or self-care (01) | DRG 392 ==
LOC: M ED 10:54 → M ED INP 14:00 → M MSPAV 15:53
PROVIDERS: ADMIT Family Medicine; ATTEND Family Medicine
DX: A09 Infectious gastroenteritis and colitis, unspecified (principal); D62 Acute posthemorrhagic anemia; H73.891 Other specified disorders of tympanic membrane, right ear; R63.4 Abnormal weight loss; F10.21 Alcohol dependence, in remission; I10 Essential (primary) hypertension; J44.9 Chronic obstructive pulmonary disease, unspecified; F17.200 Nicotine dependence, unspecified, uncomplicated; Z79.52 Long term (current) use of systemic steroids; Z79.899 Other long term (current) drug therapy

== ENCOUNTER 2019-09-10 07:15 | Day surgery (SDC) | payer MEDICARE ==
[~2019-09-10] VITALS: Ht 167.6 cm; Wt 52.2 kg
[~2019-09-10 07:15] MED LIST changes: +ACET-683 PO; +CALC600T18 PO; +CVS7.6LO MT; -DOXY100T16; +DOXY100T27; +FLAG500T PO; +FLUTISP NARES; +LEVA1TAB2 PO; +LISI10TA4 PO; +MONT10TA2 PO; +MUCI600T31 PO; +NS 1,000 ML IV ONE; +PRED10TA2 PO; +REST0.05 OU; +VITMTA PO; +[UNRECOGNIZED DRUG - CODE] PO; +[UNRECOGNIZED DRUG - CODE] PO
[2019-09-10] MEDS ORDERED: PROPOFOL 200 MG/20 ML VIAL As Ordered ONE ×2 (07:36→07:37)
[2019-09-10] MEDS ORDERED: LIDOCAINE 2% INJ 100 MG/5 ML SDV (FOR ANES.) As Ordered ONE (07:38)
[2019-09-10] MEDS ORDERED: MIDAZOLAM INJ 2 MG/2 ML VIAL (J2250) As Ordered ONE (08:10)
[2019-09-10] MEDS ORDERED: fentaNYL 100 MCG/2 ML INJECTION (J3010) As Ordered ONE (08:12)
[2019-09-10] MEDS ORDERED: PHENYLephrine HCL 500 MCG/5 ML (100MCG/ML) SYRINGE (J2370) As Ordered ONE (09:07)
--- NOTE | 2019-09-10 09:31 | ROOR ---
Patient Name: Guillermina Hill Procedure Date: 09/10/2019 8:46 AM Date of : 1950 Age: 69 Room: [facility] Gender: Female Note Status: Finalized Procedure: Upper GI endoscopy Indications: Abdominal pain in the right upper quadrant, Heartburn, Weight loss Providers: Damian Baldwin MD Referring MD: Mavis Sheth MD Requesting Provider: Medicines: Monitored Anesthesia Care Complications: No immediate complications. Procedure: Pre-Anesthesia Assessment: - Prior to the procedure, a History and Physical was performed, and patient medications and allergies were reviewed. The patient is competent. The risks and benefits of the procedure and the sedation options and risks were discussed with the patient. All questions were answered and informed consent was obtained. Patient identification and proposed procedure were verified by the physician, the nurse and the anesthesiologist in the procedure room. Mental Status Examination: alert and oriented. Airway Examination: normal oropharyngeal airway and neck mobility. Respiratory Examination: clear to auscultation. CV Examination: normal. Prophylactic Antibiotics: The patient does not require prophylactic antibiotics. Prior Anticoagulants: The patient has taken no previous anticoagulant or antiplatelet agents. ASA Grade Assessment: III - A patient with severe systemic disease. After reviewing the risks and benefits, the patient was deemed in satisfactory condition to undergo the procedure. The anesthesia plan was to use monitored anesthesia care (MAC). Immediately prior to administration of medications, the patient was re-assessed for adequacy to receive sedatives. The heart rate, respiratory rate, oxygen saturations, blood pressure, adequacy of pulmonary ventilation, and response to care were monitored throughout the procedure. The physical status of the patient was re-assessed after the procedure. The Endoscope was introduced through the mouth, and advanced to the second part of duodenum. The upper GI endoscopy was accomplished without difficulty. The patient tolerated the procedure well. Findings: The examined esophagus was normal. A small hiatal hernia was present. A few 5 to 10 mm sessile polyps with no bleeding and no stigmata of recent bleeding were found in the gastric body. The polyp was removed with a cold snare. Resection and retrieval were complete. Estimated blood loss was minimal. The ampulla, duodenal bulb, first portion of the duodenum and second portion of the duodenum were normal. Impression: - Normal esophagus. - Small hiatal hernia. - A few gastric polyps. Resected and retrieved. - Normal ampulla, duodenal bulb, first portion of the duodenum and second portion of the duodenum. Recommendation: - Discharge patient to home (ambulatory). Damian Baldwin MD Damian Baldwin MD 09/10/2019 9:30:32 AM Electronically signed by Damian Baldwin MD Number of Addenda: 0 Note Initiated On: 09/10/2019 8:46 AM Estimated Blood Loss: Estimated blood loss was minimal.
--- NOTE | 2019-09-10 09:37 | ROOR ---
Patient Name: Guillermina Hill Procedure Date: 09/10/2019 8:46 AM Date of : 1950 Age: 69 Room: [facility] Gender: Female Note Status: Finalized Procedure: Colonoscopy Indications: Abnormal CT of the GI tract, Suspected colitis Providers: Damian Baldwin MD Referring MD: Mavis Sheth MD Requesting Provider: Medicines: Monitored Anesthesia Care Complications: No immediate complications. Procedure: Pre-Anesthesia Assessment: - Prior to the procedure, a History and Physical was performed, and patient medications and allergies were reviewed. The patient is competent. The risks and benefits of the procedure and the sedation options and risks were discussed with the patient. All questions were answered and informed consent was obtained. Patient identification and proposed procedure were verified by the physician, the nurse and the anesthesiologist in the endoscopy suite. Mental Status Examination: alert and oriented. Airway Examination: normal oropharyngeal airway and neck mobility. Respiratory Examination: clear to auscultation. CV Examination: normal. Prophylactic Antibiotics: The patient does not require prophylactic antibiotics. Prior Anticoagulants: The patient has taken no previous anticoagulant or antiplatelet agents. ASA Grade Assessment: III - A patient with severe systemic disease. After reviewing the risks and benefits, the patient was deemed in satisfactory condition to undergo the procedure. The anesthesia plan was to use monitored anesthesia care (MAC). Immediately prior to administration of medications, the patient was re-assessed for adequacy to receive sedatives. The heart rate, respiratory rate, oxygen saturations, blood pressure, adequacy of pulmonary ventilation, and response to care were monitored throughout the procedure. The physical status of the patient was re-assessed after the procedure. The Colonoscope was introduced through the anus and advanced to the cecum, identified by appendiceal orifice and ileocecal valve. The colonoscopy was technically difficult and complex due to multiple diverticula in the colon and a tortuous colon. Successful completion of the procedure was aided by applying abdominal pressure. The patient tolerated the procedure well. Findings: Hemorrhoids were found on perianal exam. Multiple small and large-mouthed diverticula were found in the sigmoid colon and descending colon. There was narrowing of the colon in association with the diverticular opening. A segmental area of mildly congested and thickened folds of the mucosa was found in the descending colon. Biopsies were taken with a cold forceps for histology. Estimated blood loss was minimal. A 10 mm polyp was found in the sigmoid colon. The polyp was pedunculated. The polyp was removed with a cold snare. Resection and retrieval were complete. Estimated blood loss was minimal. No additional abnormalities were found on retroflexion. Impression: - Hemorrhoids found on perianal exam. - Moderate diverticulosis in the sigmoid colon and in the descending colon. There was narrowing of the colon in association with the diverticular opening. - Congested and thickened folds of the mucosa in the descending colon. Biopsied. - One 10 mm polyp in the sigmoid colon, removed with a cold snare. Resected and retrieved. Recommendation: - Discharge patient to home (ambulatory). - Repeat colonoscopy in 5 years for surveillance. - Return to my office in 2 weeks. Damian Baldwin MD Damian Baldwin MD 09/10/2019 9:37:15 AM Electronically signed by Damian Baldwin MD Number of Addenda: 0 Note Initiated On: 09/10/2019 8:46 AM Estimated Blood Loss: Estimated blood loss was minimal.
[2019-09-10 09:45] VITALS: BP 98/58
== END 2019-09-10 10:27 | disposition home or self-care (01) ==
LOC: M OPP 07:15
PROVIDERS: ATTEND Surgery
DX: K64.9 Unspecified hemorrhoids (principal); K63.89 Other specified diseases of intestine; D12.5 Benign neoplasm of sigmoid colon; K57.30 Diverticulosis of large intestine without perforation or abscess without bleeding; R93.3 Abnormal findings on diagnostic imaging of other parts of digestive tract; K44.9 Diaphragmatic hernia without obstruction or gangrene; K31.7 Polyp of stomach and duodenum; R10.11 Right upper quadrant pain; R63.4 Abnormal weight loss; F17.210 Nicotine dependence, cigarettes, uncomplicated; Z79.899 Other long term (current) drug therapy
CPT/HCPCS: 43251; 45380; 45385; 88305; J2250; J2370; J3010

== ENCOUNTER → 2020-07-20 | Outpatient (CLI) | payer MEDICARE ==
[~2020-07-20] MED LIST changes: -MONT10TA2 PO; +MONT10TA4 PO; -NS 1,000 ML IV ONE
--- NOTE | 2020-08-17 11:28 | REPPI ---
CHEST X-RAY: CLINICAL: Cough. TECHNIQUE: PA and lateral COMPARISON: 07/15/19 FINDINGS: Mediastinum and cardiac silhouette are normal. Lung vaz demonstrate diffuse chronic interstitial changes. No acute consolidation, effusion or pneumothorax. Skeletal structures demonstrate age related osteopenia and degenerative changes. IMPRESSION: Chronic stable changes. No acute cardiopulmonary process appreciated. MTDD
== END ==
LOC: M PLAIMG 15:38
PROVIDERS: ATTEND Family Medicine
DX: R05 Cough (principal)

== ENCOUNTER 2021-06-06 18:00 | Emergency (ER) | payer MEDICARE ==
[~2021-06-06] VITALS: Ht 167.6 cm; Wt 50.0 kg
--- NOTE | 2021-06-06 18:48 | REP ---
INDICATION: CHEST PAIN. COMPARISON: Comparison chest x-ray July 15, 2019. TECHNIQUE: Portable upright AP chest radiograph. FINDINGS: The lungs are well inflated and free of infiltrate. Pleural angles are sharp. Heart size is normal. Pulmonary vasculature is not increased. EKG electrodes are seen. There is diffuse osteopenia. The lungs are slightly hyperinflated as before. IMPRESSION: No active disease. <Electronically signed by Tuan Hoover > 06/06/21 [id number]
[2021-06-06 19:19] LABS: BLOOD UREA NITROGEN 8 MG/DL (7-18); CALCIUM LEVEL 9.1 MG/DL (8.8-10.2); CARBON DIOXIDE LEVEL 25 MEQ/L (21-32); CHLORIDE LEVEL 109 MEQ/L (98-107); CREATININE FOR GFR 0.68 MG/DL (0.55-1.30); GLOMERULAR FILTRATION RATE > 60.0 (>39); GLUCOSE, FASTING 90 MG/DL (70-100); SODIUM LEVEL 141 MEQ/L (136-145)
[2021-06-06 19:21] LABS: BASO # 0.1 10^3/uL (0.0-0.2); BASO % 0.7 % (0.0-1.0); EOS # 0.2 10^3/uL (0.0-0.5); EOS % 1.5 % (0.0-3.0); HEMOGLOBIN 14.3 g/dl (12.0-15.5); LYMPH # 2.6 10^3/uL (1.5-5.0); LYMPH % 25.2 % (24.0-44.0); MEAN CORPUSCULAR HEMOGLOBIN 32.1 pg (27.0-33.0); MEAN CORPUSCULAR HGB CONC 33.3 g/dl (32.0-36.5); MEAN CORPUSCULAR VOLUME 96.6 fl (80.0-96.0); MONO # 0.8 10^3/uL (0.0-0.8); MONO % 8.2 % (2.0-8.0); NEUTROPHILS # 6.6 10^3/uL (1.5-8.5); NEUTROPHILS % 64.1 % (36.0-66.0); PLATELET COUNT, AUTOMATED 321 10^3/uL (150-450); RED BLOOD COUNT 4.45 10^6/uL (4.00-5.40); WHITE BLOOD COUNT 10.2 10^3/uL (4.0-10.0)
[2021-06-06] MEDS ORDERED: NS 1,000 ML IV ONE (19:55)
[2021-06-06 22:23] VITALS: BP 142/68
--- NOTE | 2021-06-06 22:32 | ECGEPIP ---
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
== END 2021-06-06 22:30 | disposition home or self-care (01) ==
LOC: M ED 18:00
DX: Z12.2 Encounter for screening for malignant neoplasm of respiratory organs (principal); F43.0 Acute stress reaction; F17.210 Nicotine dependence, cigarettes, uncomplicated; I10 Essential (primary) hypertension

== ENCOUNTER → 2021-06-06 | Outpatient (CLI) | payer MEDICARE ==
[~2021-06-06] MED LIST changes: +LISI10TA22 PO; -LISI10TA4 PO; +MONT10TA10 PO; -MONT10TA4 PO
--- NOTE | 2021-06-06 17:28 | REP ---
INDICATION: SCREENING FOR LUNG CA. COMPARISON: Radiographs 07/20/2020. TECHNIQUE: Low dose screening CT chest performed without the use of intravenous contrast. FINDINGS: Lungs: Clear, no infiltrate or nodule. There is mild diffuse emphysematous change and interstitial fibrosis. Heart: Not enlarged. Thoracic aorta: No aneurysm. Visualized osseous structures: Unremarkable. IMPRESSION: Category 1 negative low dose noncontrast CT chest. Recommend follow-up in 1 year. <Electronically signed by Benjy Morin > 06/06/21 [id number]
== END ==
LOC: M RAD 14:33
PROVIDERS: ATTEND Family Medicine
DX: Z12.2 Encounter for screening for malignant neoplasm of respiratory organs (principal); F17.210 Nicotine dependence, cigarettes, uncomplicated

== ENCOUNTER → 2022-03-22 | Outpatient (CLI) | payer MEDICARE ==
[~2022-03-22] MED LIST changes: -CEFD1CAP8 PO; +CEFD300C41 PO; -MONT10TA10 PO; +MONT10TA97 PO
[2022-03-22 17:55] LABS: ALBUMIN 4.3 GM/DL (3.2-5.2); ALT/SGPT 19 U/L (12-78); BILIRUBIN,TOTAL 0.3 MG/DL (0.2-1.0); BLOOD UREA NITROGEN 16 MG/DL (7-18); CALCIUM LEVEL 10.3 MG/DL (8.8-10.2); CARBON DIOXIDE LEVEL 25 MEQ/L (21-32); CHLORIDE LEVEL 111 MEQ/L (98-107); CHOLESTEROL LEVEL 216 MG/DL (<200); CHOLESTEROL RISK RATIO 3.323 (<5); GLOMERULAR FILTRATION RATE > 60.0 (>39); GLUCOSE, FASTING 90 MG/DL (70-100); HDL CHOLESTEROL 65 MG/DL (>40); LDL CHOLESTEROL 129 MG/DL (<100); NON-HDL-C 151 MG/DL; POTASSIUM SERUM 4.4 MEQ/L (3.5-5.1); SODIUM LEVEL 143 MEQ/L (136-145); TOTAL PROTEIN 6.9 GM/DL (6.4-8.2); TRIGLYCERIDES LEVEL 109 MG/DL (<150)
== END ==
LOC: M PLALAB 11:51
PROVIDERS: ATTEND Student in an Organized Health Care Education/Training Program
DX: Z13.1 Encounter for screening for diabetes mellitus (principal); Z13.220 Encounter for screening for lipoid disorders; I10 Essential (primary) hypertension; Z79.899 Other long term (current) drug therapy

== ENCOUNTER → 2023-02-06 | Outpatient (CLI) | payer MEDICARE | LOC: M RAD 14:24 | PROVIDERS: ATTEND Student in an Organized Health Care Education/Training Program | DX: Z87.891 Personal history of nicotine dependence (principal) ==

== ENCOUNTER → 2023-03-05 | Outpatient (CLI) | payer MEDICARE ==
[~2023-03-05] MED LIST changes: +FLUT50SP17 NARES; -FLUTISP NARES
[2023-03-05 16:59] LABS: ALBUMIN 4.2 G/DL (3.2-5.2); ALKALINE PHOSPHATASE 84 U/L (46-116); ALT/SGPT 17 U/L (7.0-40); AST/SGOT 17 U/L (<34); BILIRUBIN,TOTAL 0.5 MG/DL (0.3-1.2); BLOOD UREA NITROGEN 11 MG/DL (9-23); CALCIUM LEVEL 9.5 MG/DL (8.3-10.6); CARBON DIOXIDE LEVEL 27 MMOL/L (20-31); CHLORIDE LEVEL 103 MMOL/L (98-107); CREATININE FOR GFR 0.73 MG/DL (0.55-1.30); GLOMERULAR FILTRATION RATE > 60.0 (>39); GLUCOSE, FASTING 97 MG/DL (74-106); POTASSIUM SERUM 5.2 MMOL/L (3.5-5.1); SODIUM LEVEL 135 MMOL/L (136-145); TOTAL PROTEIN 6.8 G/DL (5.7-8.2)
[2023-03-05 17:01] LABS: FREE T4 1.16 NG/DL (0.89-1.76); THYROID STIMULATING HORMONE 0.797 uIU/ML (0.55-4.78)
[2023-03-05 17:05] LABS: BASO # 0.1 10^3/uL (0.0-0.2); BASO % 0.9 % (0.0-1.0); EOS # 0.1 10^3/uL (0.0-0.5); EOS % 1.5 % (0.0-3.0); HEMATOCRIT 43.2 % (36.0-47.0); HEMOGLOBIN 14.2 g/dl (12.0-15.5); LYMPH # 2.3 10^3/uL (1.5-5.0); LYMPH % 31.5 % (24.0-44.0); MEAN CORPUSCULAR HEMOGLOBIN 32.3 pg (27.0-33.0); MEAN CORPUSCULAR HGB CONC 32.9 g/dl (32.0-36.5); MEAN CORPUSCULAR VOLUME 98.4 fl (80.0-96.0); MONO # 0.7 10^3/uL (0.0-0.8); MONO % 9.1 % (2.0-8.0); NEUTROPHILS # 4.2 10^3/uL (1.5-8.5); NEUTROPHILS % 56.6 % (36.0-66.0); PLATELET COUNT, AUTOMATED 326 10^3/uL (150-450); RED BLOOD COUNT 4.39 10^6/uL (4.00-5.40); WHITE BLOOD COUNT 7.4 10^3/uL (4.0-10.0)
== END ==
LOC: M WUC 13:54
PROVIDERS: ATTEND Student in an Organized Health Care Education/Training Program
DX: R00.0 Tachycardia, unspecified (principal)

== ENCOUNTER → 2023-05-30 | Outpatient (CLI) | payer MEDICARE ==
[2023-05-30 16:13] LABS: ALBUMIN 4.1 G/DL (3.2-5.2); ALKALINE PHOSPHATASE 83 U/L (46-116); ALT/SGPT 15 U/L (7.0-40); AST/SGOT 9 U/L (<34); BILIRUBIN,TOTAL 0.4 MG/DL (0.3-1.2); BLOOD UREA NITROGEN 10 MG/DL (9-23); CALCIUM LEVEL 10.1 MG/DL (8.3-10.6); CARBON DIOXIDE LEVEL 28 MMOL/L (20-31); CHLORIDE LEVEL 103 MMOL/L (98-107); CHOLESTEROL LEVEL 180 MG/DL (<200); CHOLESTEROL RISK RATIO 3.45 (<5); CREATININE FOR GFR 0.64 MG/DL (0.55-1.30); GLOMERULAR FILTRATION RATE > 60.0 (>39); GLUCOSE, FASTING 83 MG/DL (74-106); HDL CHOLESTEROL 52.1 MG/DL (>40); LDL CHOLESTEROL 103.5 MG/DL (<100); NON-HDL-C 127.9 MG/DL; POTASSIUM SERUM 4.4 MMOL/L (3.5-5.1); SODIUM LEVEL 137 MMOL/L (136-145); TOTAL PROTEIN 6.5 G/DL (5.7-8.2); TRIGLYCERIDES LEVEL 122 MG/DL (<150)
[2023-05-30 16:14] LABS: THYROID STIMULATING HORMONE 0.538 uIU/ML (0.55-4.78)
[2023-05-30 16:15] LABS: FOLATE > 24.0 NG/ML (>5.4); FREE T4 1.29 NG/DL (0.89-1.76); VITAMIN B12 LEVEL 612 PG/ML (211-911)
[2023-05-30 16:25] LABS: HEMOGLOBIN A1c 4.8 % (4.0-6.0); TOTAL 25(OH) VITAMIN D 28.9 NG/ML (20.0-100.0)
== END ==
LOC: M PLALAB 12:26
PROVIDERS: ATTEND Student in an Organized Health Care Education/Training Program
DX: R63.4 Abnormal weight loss (principal); E78.00 Pure hypercholesterolemia, unspecified; I10 Essential (primary) hypertension; Z13.1 Encounter for screening for diabetes mellitus; Z79.899 Other long term (current) drug therapy

== ENCOUNTER → 2023-05-30 | Outpatient (REF) | payer MEDICARE | LOC: M SFHCPLAZ 12:05 | PROVIDERS: ATTEND Family Medicine | DX: R63.4 Abnormal weight loss (principal); E78.00 Pure hypercholesterolemia, unspecified; I10 Essential (primary) hypertension; Z13.1 Encounter for screening for diabetes mellitus ==

== ENCOUNTER → 2023-09-17 | Outpatient (REF) | payer MEDICARE ==
[~2023-09-17] MED LIST changes: -CEFD300C41 PO; +CEFD300C42 PO
== END ==
LOC: M SFHCPLAZ 14:35
PROVIDERS: ATTEND Family Medicine
DX: Z53.29 Procedure and treatment not carried out because of patient's decision for other reasons (principal)

== ENCOUNTER → 2024-01-03 | Outpatient (REF) | payer MEDICARE ==
[~2024-01-03] MED LIST changes: +CEFD1CAP9 PO; -CEFD300C42 PO; -FLUT50SP17 NARES; +FLUTISP NARES
== END ==
LOC: M SFHCPLAZ 13:32
PROVIDERS: ATTEND Family Medicine
DX: R00.2 Palpitations (principal)

== ENCOUNTER → 2024-05-26 | Outpatient (CLI) | payer MEDICARE ==
[~2024-05-26] MED LIST changes: +[UNRECOGNIZED DRUG - CODE] PO; -[UNRECOGNIZED DRUG - CODE] PO
[2024-05-26 13:47] LABS: BASO # 0.1 10^3/uL (0.0-0.2); BASO % 0.9 % (0.0-1.0); EOS # 0.1 10^3/uL (0.0-0.5); HEMATOCRIT 42.8 % (36.0-47.0); HEMOGLOBIN 14.3 g/dl (12.0-15.5); LYMPH # 1.4 10^3/uL (1.5-5.0); LYMPH % 21.9 % (24.0-44.0); MEAN CORPUSCULAR HEMOGLOBIN 32.6 pg (27.0-33.0); MEAN CORPUSCULAR HGB CONC 33.4 g/dl (32.0-36.5); MEAN CORPUSCULAR VOLUME 97.7 fl (80.0-96.0); MONO # 0.5 10^3/uL (0.0-0.8); MONO % 7.3 % (2.0-8.0); NEUTROPHILS # 4.4 10^3/uL (1.5-8.5); NEUTROPHILS % 67.4 % (36.0-66.0); PLATELET COUNT, AUTOMATED 310 10^3/uL (150-450); RED BLOOD COUNT 4.38 10^6/uL (4.00-5.40); WHITE BLOOD COUNT 6.6 10^3/uL (4.0-10.0)
[2024-05-26 14:14] LABS: ALBUMIN 4.5 G/DL (3.2-5.2); ALKALINE PHOSPHATASE 110 U/L (46-116); ALT/SGPT 25 U/L (7.0-40); AST/SGOT 15 U/L (<34); BILIRUBIN,TOTAL 0.7 MG/DL (0.3-1.2); BLOOD UREA NITROGEN 13 MG/DL (9-23); CALCIUM LEVEL 9.5 MG/DL (8.3-10.6); CARBON DIOXIDE LEVEL 26 MMOL/L (20-31); CHLORIDE LEVEL 102 MMOL/L (98-107); CREATININE FOR GFR 0.71 MG/DL (0.55-1.30); GLOMERULAR FILTRATION RATE > 60.0 (>39); GLUCOSE, FASTING 85 MG/DL (74-106); MAGNESIUM LEVEL 1.9 MG/DL (1.8-2.4); POTASSIUM SERUM 4.5 MMOL/L (3.5-5.1); SODIUM LEVEL 133 MMOL/L (136-145); TOTAL PROTEIN 6.9 G/DL (5.7-8.2)
[2024-05-26 14:16] LABS: FREE T4 1.52 NG/DL (0.89-1.76); THYROID STIMULATING HORMONE 0.828 uIU/ML (0.55-4.78)
== END ==
LOC: M RAD 12:39
PROVIDERS: ATTEND Student in an Organized Health Care Education/Training Program
DX: Z12.2 Encounter for screening for malignant neoplasm of respiratory organs (principal); F17.210 Nicotine dependence, cigarettes, uncomplicated; I10 Essential (primary) hypertension; R00.2 Palpitations; E78.00 Pure hypercholesterolemia, unspecified; E05.90 Thyrotoxicosis, unspecified without thyrotoxic crisis or storm

== ENCOUNTER → 2024-10-27 | Outpatient (CLI) | payer MEDICARE | LOC: M CARPUL 12:44 | PROVIDERS: ATTEND Student in an Organized Health Care Education/Training Program | DX: J44.9 Chronic obstructive pulmonary disease, unspecified (principal) ==

== ENCOUNTER → 2024-12-16 | Outpatient (REF) | payer MEDICARE | LOC: M SFHCPLAZ 11:16 | PROVIDERS: ATTEND Family Medicine | DX: R63.0 Anorexia (principal); J44.9 Chronic obstructive pulmonary disease, unspecified; E78.00 Pure hypercholesterolemia, unspecified; E05.90 Thyrotoxicosis, unspecified without thyrotoxic crisis or storm ==

== ENCOUNTER 2025-02-08 21:47 | Inpatient (IN) | payer MEDICARE ==
[~2025-02-08] VITALS: Ht 167.6 cm; Wt 46.4 kg
[2025-02-08] MEDS: IPRATROPIUM 0.5MG/ALBUTEROL 2.5MG INH SOL UD 3ML (DUONEB) NEB SCH (22:08)
[2025-02-08 22:22] LABS: BASO # 0.1 10^3/uL (0.0-0.2); BASO % 0.3 % (0.0-1.0); EOS % 0.2 % (0.0-3.0); HEMATOCRIT 39.1 % (36.0-47.0); HEMOGLOBIN 13.5 g/dl (12.0-15.5); LYMPH # 0.7 10^3/uL (1.5-5.0); LYMPH % 3.9 % (24.0-44.0); MEAN CORPUSCULAR HEMOGLOBIN 33.1 pg (27.0-33.0); MEAN CORPUSCULAR HGB CONC 34.5 g/dl (32.0-36.5); MEAN CORPUSCULAR VOLUME 95.8 fl (80.0-96.0); MONO # 1.1 10^3/uL (0.0-0.8); MONO % 6.1 % (2.0-8.0); NEUTROPHILS # 15.8 10^3/uL (1.5-8.5); NEUTROPHILS % 88.8 % (36.0-66.0); PLATELET COUNT, AUTOMATED 298 10^3/uL (150-450); RED BLOOD COUNT 4.08 10^6/uL (4.00-5.40); WHITE BLOOD COUNT 17.7 10^3/uL (4.0-10.0)
[2025-02-08] MEDS: cefTRIAXone SOD 1 GM in DEXTROSE 5% (D5W) ADV/MINI-BAG 50 ML IV ONE (22:34)
[2025-02-08] MEDS: dexAMETHasone 20MG/5ML VIAL XX STA (22:34)
[2025-02-08 22:35] LABS: ABG BASE EXCESS -2.3 (-2.0-2.0); ABG HCO3 20.7 MMOL/L (22.0-26.0); ABG O2 SATURATION 98.4 % (95.0-99.0); ABG PARTIAL PRESSURE CO2 30.7 mmHg (35.0-45.0); ABG STANDARD HCO3 22.6 MMOL/L. (22.0-26.0); ABG TOTAL CO2 21.6 MMOL/L (23.0-31.0); ABG pH (ARTERIAL) 7.446 UNITS (7.350-7.450)
[2025-02-08 22:49] LABS: ALBUMIN 3.9 G/DL (3.2-5.2); ALKALINE PHOSPHATASE 86 U/L (35-104); ALT/SGPT 21 U/L (7.0-40); AST/SGOT 37 U/L (<34); BILIRUBIN,TOTAL 0.7 MG/DL (0.3-1.2); BLOOD UREA NITROGEN 10 MG/DL (9-23); CALCIUM LEVEL 8.8 MG/DL (8.3-10.6); CARBON DIOXIDE LEVEL 23 MMOL/L (20-31); CHLORIDE LEVEL 106 MMOL/L (98-107); CREATININE FOR GFR 0.68 MG/DL (0.55-1.30); GLOMERULAR FILTRATION RATE > 60.0 (>39); GLUCOSE, FASTING 106 MG/DL (74-106); POTASSIUM SERUM 4.5 MMOL/L (3.5-5.1); SODIUM LEVEL 136 MMOL/L (136-145); TOTAL PROTEIN 6.5 G/DL (5.7-8.2)
[2025-02-08] MEDS: AZITHROMYCIN INJ 500 MG, VIAL MATE ADAPTER 1 EACH in NS 250 ML IV ONE (23:24)
[2025-02-08] MEDS: ACETAMINOPHEN *IV* 1,000 MG in IV 1 EA IV ONE (23:28)
[2025-02-09] VITALS (10 sets, daily range): BP systolic 132–146; BP diastolic 65–99; TEMP 97.9; O2SAT 80–96
[2025-02-09] MEDS ORDERED: BISO5TAB14 PO (03:40)
[2025-02-09] MEDS ORDERED: VITAD1000T PO (03:40)
[2025-02-09] MEDS ORDERED: ALBU2.5V10 INH (03:40)
[2025-02-09] MEDS ORDERED: ATOR1TAB21 PO (03:40)
[2025-02-09] MEDS ORDERED: MV-M1TAB13 PO (03:40)
[2025-02-09] MEDS ORDERED: SPIR1CAP INH (03:40)
[2025-02-09] MEDS ORDERED: ALBU8.5H INH (03:40)
[2025-02-09] MEDS ORDERED: HOME MED LIST COMPLETE! XX SCH (03:45)
[2025-02-09] MEDS ORDERED: LevoFLOXacin IV 750 MG in IV 1 EA IV SCH (06:15)
[2025-02-09] MEDS ORDERED: FLUTICASONE PROP 0.05% NASAL SPRAY 16 GM (FLONASE) NARES PRN (06:15)
[2025-02-09] MEDS ORDERED: MAALOX 30 ML SUSP *UDC PO PRN (06:15)
[2025-02-09] MEDS: UNRESOLVED CLARIFICATION ENTRY XX STA (06:25)
[2025-02-09] MEDS: NS (Normal Saline) 0.9% 1,000 ML IV SCH (06:37)
[2025-02-09] MEDS: methylPREDNISolone 125MG 2ML VIAL IV STA (06:37)
[2025-02-09] MEDS ORDERED: NS (Normal Saline) 0.9% 1,000 ML IV ONE (07:00)
[2025-02-09] MEDS: LR 1,000 ML IV SCH (07:39)
[2025-02-09] MEDS: IPRATROPIUM 0.5MG/ALBUTEROL 2.5MG INH SOL UD 3ML (DUONEB) NEB SCH (07:41)
[2025-02-09] MEDS: ADVAIR HFA 115/21MCG INHALER INH SCH (07:41)
[2025-02-09] MEDS: LevoFLOXacin 750 MG TABLET PO SCH (07:47)
[2025-02-09 08:16] LABS: C REACTIVE PROTEIN QUANTITATIV 7.51 MG/DL (<1.0)
[2025-02-09 08:27] LABS: PROCALCITONIN 0.12 ng/ml
[2025-02-09] MEDS: HEPARIN SOD (PORCINE) 5000UNITS/ML 1ML VIAL/SYRINGE SC SCH (08:42)
[2025-02-09] MEDS: PANTOPRAZOLE 40MG VIAL IV SCH (08:44)
[2025-02-09] MEDS: ACETAMINOPHEN 325 MG TAB PO PRN (08:44)
[2025-02-09] MEDS: DOCUSATE SODIUM 100MG CAPSULE PO SCH (08:45)
[2025-02-09] MEDS: MONTELUKAST 10 MG TAB PO SCH (08:45)
[2025-02-09] MEDS: ATORVASTATIN 20 MG TAB PO SCH (08:45)
[2025-02-09] MEDS ORDERED: BISOPROLOL FUM 2.5 MG PER 1/2TAB PO SCH (09:00)
[2025-02-09] MEDS ORDERED: ISOVUE-370 76% 100ML VIAL As Ordered ONE (09:04)
[2025-02-09] MEDS: guaiFENesin/CODEINE SYRUP 5 ML UDC PO SCH (11:29)
[2025-02-09] MEDS: IBUPROFEN 600MG TAB PO ONE (12:41)
[2025-02-09] MEDS: methylPREDNISolone 125MG 2ML VIAL IV SCH (14:18)
[2025-02-09] MEDS: GLYCOPYRROLATE INJ 0.2 MG/ML 2 ML VIAL NEB SCH (19:26)
[2025-02-09] MEDS: diphenhydrAMINE 25MG CAP PO PRN (21:16)
[2025-02-10] VITALS (18 sets, daily range): BP systolic 126–137; BP diastolic 85–87; TEMP 97.2–97.9; O2SAT 74–97
[2025-02-10 06:34] LABS: BASO % 0.1 % (0.0-1.0); HEMATOCRIT 35.3 % (36.0-47.0); LYMPH # 0.5 10^3/uL (1.5-5.0); LYMPH % 4.7 % (24.0-44.0); MEAN CORPUSCULAR HEMOGLOBIN 32.3 pg (27.0-33.0); MEAN CORPUSCULAR VOLUME 95.1 fl (80.0-96.0); MONO # 0.3 10^3/uL (0.0-0.8); MONO % 2.9 % (2.0-8.0); NEUTROPHILS # 8.9 10^3/uL (1.5-8.5); NEUTROPHILS % 91.6 % (36.0-66.0); PLATELET COUNT, AUTOMATED 257 10^3/uL (150-450); RED BLOOD COUNT 3.71 10^6/uL (4.00-5.40); WHITE BLOOD COUNT 9.7 10^3/uL (4.0-10.0)
[2025-02-10 07:04] LABS: C REACTIVE PROTEIN QUANTITATIV 7.41 MG/DL (<1.0)
[2025-02-10 07:19] LABS: ALBUMIN 3.3 G/DL (3.2-5.2); ALKALINE PHOSPHATASE 75 U/L (35-104); ALT/SGPT 18 U/L (7.0-40); AST/SGOT 23 U/L (<34); BILIRUBIN,TOTAL 0.4 MG/DL (0.3-1.2); BLOOD UREA NITROGEN 14 MG/DL (9-23); CALCIUM LEVEL 8.7 MG/DL (8.3-10.6); CARBON DIOXIDE LEVEL 21 MMOL/L (20-31); CHLORIDE LEVEL 106 MMOL/L (98-107); CREATININE FOR GFR 0.65 MG/DL (0.55-1.30); GLOMERULAR FILTRATION RATE > 60.0 (>39); GLUCOSE, FASTING 132 MG/DL (74-106); MAGNESIUM LEVEL 1.9 MG/DL (1.8-2.4); POTASSIUM SERUM 4.4 MMOL/L (3.5-5.1); SODIUM LEVEL 137 MMOL/L (136-145); TOTAL PROTEIN 5.9 G/DL (5.7-8.2)
[2025-02-10] MEDS: ENOXAPARIN 30MG/0.3ML SYRINGE (J1650 PER 10MG) SC SCH (08:24)
[2025-02-10 08:38] LABS: KETONE, URINE AUTO RFX NEGATIVE (NEGATIVE); LEUKOCYTE ESTERASE UR AUTO RFX NEGATIVE (NEGATIVE); NITRITE, URINE AUTO RFX NEGATIVE (NEGATIVE); RBC, URINE AUTO RFX 0 /HPF (0-3); SQUAM EPITHELIAL CELL UR AURFX 0 /HPF (0-6); WBC, URINE AUTO RFX 0 /HPF (0-3)
[2025-02-10] MEDS: NICOTINE 14 MG/24 HR TRANSDERMAL TD SCH (09:00)
[2025-02-10] MEDS: IPRATROPIUM 0.02% SOLN 0.5MG 2.5ML NEB INH SCH (09:24)
[2025-02-10] MEDS: LEVALBUTEROL 1.25MG 0.5ML CONCENTRATE NEB INH SCH (09:24)
[2025-02-10] MEDS: METOPROLOL TART 25 MG TABLET PO SCH (11:12)
[2025-02-10] MEDS: RAMELTEON 8 MG TAB (ROZEREM) PO PRN (22:40)
[2025-02-11] VITALS (18 sets, daily range): BP systolic 113–121; BP diastolic 73–76; TEMP 97.3–97.9; O2SAT 78–97
[2025-02-11 08:49] LABS: HEMATOCRIT 37.9 % (36.0-47.0); HEMOGLOBIN 12.6 g/dl (12.0-15.5); MEAN CORPUSCULAR HEMOGLOBIN 32.2 pg (27.0-33.0); MEAN CORPUSCULAR HGB CONC 33.2 g/dl (32.0-36.5); MEAN CORPUSCULAR VOLUME 96.9 fl (80.0-96.0); PLATELET COUNT, AUTOMATED 263 10^3/uL (150-450); RED BLOOD COUNT 3.91 10^6/uL (4.00-5.40); WHITE BLOOD COUNT 11.3 10^3/uL (4.0-10.0)
[2025-02-11] MEDS ORDERED: E-Z-GAS II EFFERVESCENT PACKET (SODIUM BICARB./CITRIC ACID/SIMETHICONE) As Ordered ONE (08:49)
[2025-02-11] MEDS ORDERED: E-Z-PAQUE 96% w/w SUSP 176GM BTL As Ordered ONE (08:49)
[2025-02-11] MEDS ORDERED: E-Z-HD 98% w/w 340GM SUSP BTL As Ordered ONE (08:50)
[2025-02-11] MEDS: bisoproloL fumarate 5 MG TAB PO SCH (09:25)
[2025-02-11 11:58] LABS: PERCENT SATURATION 23.8 % (13.2-45.0)
[2025-02-11 12:00] LABS: FERRITIN 94.2 NG/ML (7.3-270.7)
[2025-02-11 12:18] LABS: FOLATE 13.65 NG/ML (>5.4)
[2025-02-11] MEDS: bisoproloL fumarate 5 MG TAB PO ONE (12:30)
[2025-02-11] MEDS: hydrOXYzine 50 MG TAB PO ONE (12:31)
[2025-02-11] MEDS: MEGESTROL 400MG 10ML SUSP ORAL SYRINGE *DRAW UP EXACT DOSE PO SCH (16:26)
[2025-02-11] MEDS: PREVNAR-20 VACCINE 0.5ML SYRINGE IM.IMMUN ONE (16:27)
[2025-02-11] MEDS: oxyCODONE 5MG TAB PO ONE (23:08)
[2025-02-12] MEDS: MOM 30ML SUSPENSION UDC PO PRN (05:21)
[2025-02-12 05:22] VITALS: BP 112/72; TEMP 98.1; O2SAT 92
[2025-02-12] MEDS: predniSONE 20 MG TAB PO SCH (08:35)
[2025-02-12] MEDS: PANTOPRAZOLE 40MG TAB (PROTONIX) PO SCH (08:35)
[2025-02-12 08:41] VITALS: BP 140/76
[2025-02-12] MEDS: bisoproloL fumarate 10 MG TAB PO SCH (08:41)
[2025-02-12] MEDS: hydrOXYzine 50 MG TAB PO PRN (08:45)
[2025-02-12] MEDS ORDERED: PANT40TA29 PO (11:52)
[2025-02-12] MEDS ORDERED: NICO7DIS24 TD (11:52)
[2025-02-12] MEDS ORDERED: IPRA0.00 INH (11:52)
[2025-02-12] MEDS ORDERED: HYDR50TA70 PO (11:52)
[2025-02-12] MEDS ORDERED: PRED10TA2 PO (11:52)
[2025-02-12] MEDS ORDERED: BISO10TA13 PO (11:52)
[2025-02-12] MEDS ORDERED: PRED20TA PO (11:52)
[2025-02-12] MEDS ORDERED: LEVO75TAB PO (11:52)
[2025-02-12 12:00] VITALS: BP 135/71; TEMP 97; O2SAT 97
== END 2025-02-12 17:02 | disposition home health service (06) | DRG 190 ==
LOC: M ED 21:47 → M ED INP 02-09 06:12 → M MSPAV 02-09 16:45
PROVIDERS: ADMIT Student in an Organized Health Care Education/Training Program; ATTEND Student in an Organized Health Care Education/Training Program
DX: J44.1 Chronic obstructive pulmonary disease with (acute) exacerbation (principal); J96.01 Acute respiratory failure with hypoxia; E43 Unspecified severe protein-calorie malnutrition; Z68.1 Body mass index [BMI] 19.9 or less, adult; I10 Essential (primary) hypertension; E03.9 Hypothyroidism, unspecified; E78.5 Hyperlipidemia, unspecified; M25.532 Pain in left wrist; R13.10 Dysphagia, unspecified; I95.9 Hypotension, unspecified; R00.0 Tachycardia, unspecified; J40 Bronchitis, not specified as acute or chronic; F41.9 Anxiety disorder, unspecified; Z79.899 Other long term (current) drug therapy

== ENCOUNTER → 2025-03-17 | Outpatient (REF) | payer MEDICARE ==
[~2025-03-17] MED LIST changes: +ALBU2.5V10 INH; +ALBU8.5H INH; +ATOR1TAB21 PO; +BISO10TA13 PO; +BISO5TAB14 PO; +HYDR50TA70 PO; +IPRA0.00 INH; +LEVO75TAB PO; +MV-M1TAB13 PO; +NICO7DIS24 TD; +PANT40TA29 PO; +PRED20TA PO; +SPIR1CAP INH; +VITAD1000T PO
[2025-03-17 11:41] LABS: CHOLESTEROL RISK RATIO 2.8 (<5)
[2025-03-17 11:43] LABS: FREE T4 1.27 NG/DL (0.89-1.76)
[2025-03-17 11:44] LABS: THYROID STIMULATING HORMONE 0.699 uIU/ML (0.55-4.78)
== END ==
LOC: M SHH 10:50
DX: E78.5 Hyperlipidemia, unspecified (principal); R06.02 Shortness of breath; E00.2 Congenital iodine-deficiency syndrome, mixed type

== ENCOUNTER → 2025-06-25 | Outpatient (CLI) | payer MEDICARE ==
[~2025-06-25] MED LIST changes: +HYDR-4571 PO; +IBUP-1114 PO; +MIRT-11 PO; +OXYC-517 PO
== END ==
LOC: M RAD 14:09
PROVIDERS: ATTEND Physician Assistant
DX: S32.048A Other fracture of fourth lumbar vertebra, initial encounter for closed fracture (principal); W18.30XA Fall on same level, unspecified, initial encounter; Y92.009 Unspecified place in unspecified non-institutional (private) residence as the place of occurrence of the external cause

== ENCOUNTER → 2025-07-10 | Outpatient (CLI) | payer MEDICARE | LOC: M WHC 21:29 | PROVIDERS: ATTEND Family Medicine | DX: Z13.820 Encounter for screening for osteoporosis (principal); F17.210 Nicotine dependence, cigarettes, uncomplicated; Z53.9 Procedure and treatment not carried out, unspecified reason ==

== ENCOUNTER → 2025-07-18 | Outpatient (CLI) | payer MEDICARE | LOC: M RAD 11:57 | DX: R91.1 Solitary pulmonary nodule (principal); Z53.9 Procedure and treatment not carried out, unspecified reason ==

== ENCOUNTER → 2025-07-22 | Outpatient (CLI) | payer MEDICARE | LOC: M CARPUL 14:30 | PROVIDERS: ATTEND Physician Assistant | DX: R94.31 Abnormal electrocardiogram [ECG] [EKG] (principal); I27.20 Pulmonary hypertension, unspecified; I08.2 Rheumatic disorders of both aortic and tricuspid valves ==

== ENCOUNTER → 2025-07-27 | Outpatient (CLI) | payer MEDICARE | LOC: M PLAIMG 10:26 | DX: R91.1 Solitary pulmonary nodule (principal); Z53.9 Procedure and treatment not carried out, unspecified reason ==

== ENCOUNTER → 2025-07-27 | Outpatient (CLI) | payer MEDICARE | LOC: M WHC 11:32 | DX: Z13.820 Encounter for screening for osteoporosis (principal) ==

== ENCOUNTER 2025-08-06 13:13 | Emergency (ER) | payer MEDICARE ==
[~2025-08-06] VITALS: Ht 167.6 cm; Wt 46.3 kg
[2025-08-06 14:44] LABS: BASO # 0.1 10^3/uL (0.0-0.2); BASO % 0.5 % (0.0-1.0); EOS # 0.1 10^3/uL (0.0-0.5); EOS % 0.6 % (0.0-3.0); LYMPH # 1.2 10^3/uL (1.5-5.0); LYMPH % 13.2 % (24.0-44.0); MONO # 0.6 10^3/uL (0.0-0.8); MONO % 6.8 % (2.0-8.0); NEUTROPHILS # 7.3 10^3/uL (1.5-8.5); NEUTROPHILS % 78.1 % (36.0-66.0); PLATELET COUNT, AUTOMATED 278 10^3/uL (150-450)
[2025-08-06] MEDS: ALBUTEROL SULFATE 2.5 MG/0.5 ML INH CONCENTRATE NEB SOLN NEB ONE (14:46)
[2025-08-06 14:59] LABS: CALCIUM LEVEL 9.9 MG/DL (8.3-10.6); CARBON DIOXIDE LEVEL 26.0 MMOL/L (20-31); CHLORIDE LEVEL 104.0 MMOL/L (98-107); CREATININE FOR GFR 0.81 MG/DL (0.55-1.30); GLOMERULAR FILTRATION RATE 76.1 (>39); POTASSIUM SERUM 4.8 MMOL/L (3.5-5.1); SODIUM LEVEL 137.0 MMOL/L (136-145)
[2025-08-06] MEDS: METHOCARBAMOL 1,000 MG/10 ML VIAL IV ONE (15:13)
[2025-08-06] MEDS: KETOROLAC 30 MG/ML 1 ML VIAL IV ONE (15:13)
[2025-08-06] MEDS: ACETAMINOPHEN *IV* 1,000 MG in IV 1 EA IV ONE (17:54)
[2025-08-06] MEDS ORDERED: METH-1164 PO (18:43)
[2025-08-06 18:49] VITALS: BP 135/72; TEMP 98.2; O2SAT 96
== END 2025-08-06 18:53 | disposition home or self-care (01) ==
LOC: M ED 14:30
DX: M62.830 Muscle spasm of back (principal); S32.020A Wedge compression fracture of second lumbar vertebra, initial encounter for closed fracture; S32.010A Wedge compression fracture of first lumbar vertebra, initial encounter for closed fracture; I10 Essential (primary) hypertension; F17.200 Nicotine dependence, unspecified, uncomplicated; Z91.010 Allergy to peanuts; Z79.52 Long term (current) use of systemic steroids; Z79.02 Long term (current) use of antithrombotics/antiplatelets; Z79.1 Long term (current) use of non-steroidal anti-inflammatories (NSAID); Z79.899 Other long term (current) drug therapy; Y92.9 Unspecified place or not applicable; Y93.89 Activity, other specified; Y99.9 Unspecified external cause status
CPT/HCPCS: 71046; 72070; 72110; 80048; 85025; 96365; 96375; 99284; J0131; J1885; J2800

== ENCOUNTER → 2025-08-14 | Outpatient (REF) | payer MEDICARE ==
[~2025-08-14] MED LIST changes: +METH-1164 PO
== END ==
LOC: M SFHCPLAZ 14:17
PROVIDERS: ATTEND Family Medicine
DX: Z53.9 Procedure and treatment not carried out, unspecified reason (principal)

== ENCOUNTER → 2025-08-14 | Outpatient (CLI) | payer MEDICARE ==
[2025-08-14 17:41] LABS: BASO # 0.1 10^3/uL (0.0-0.2); BASO % 0.9 % (0.0-1.0); EOS # 0.1 10^3/uL (0.0-0.5); EOS % 1.5 % (0.0-3.0); LYMPH # 1.1 10^3/uL (1.5-5.0); LYMPH % 18.7 % (24.0-44.0); MONO # 0.5 10^3/uL (0.0-0.8); MONO % 8.2 % (2.0-8.0); NEUTROPHILS # 4.1 10^3/uL (1.5-8.5); NEUTROPHILS % 70.4 % (36.0-66.0); PLATELET COUNT, AUTOMATED 299 10^3/uL (150-450)
[2025-08-14 17:52] LABS: ALT/SGPT 18 U/L (7.0-40); AST/SGOT 25 U/L (<34); CALCIUM LEVEL 9.4 MG/DL (8.3-10.6); CARBON DIOXIDE LEVEL 23 MMOL/L (20-31); CHLORIDE LEVEL 108 MMOL/L (98-107); CREATININE FOR GFR 0.59 MG/DL (0.55-1.30); GLOMERULAR FILTRATION RATE > 90.0 (>39); POTASSIUM SERUM 4.3 MMOL/L (3.5-5.1); SODIUM LEVEL 138 MMOL/L (136-145)
== END ==
LOC: M PLALAB 14:56
DX: Z79.899 Other long term (current) drug therapy (principal)

== ENCOUNTER 2025-10-09 18:16 | Inpatient (IN) | payer MEDICARE, OTHER ==
[~2025-10-09] VITALS: Ht 154.9 cm; Wt 44.6 kg
[2025-10-09 19:04] LABS: BASO # 0.0 10^3/uL (0.0-0.2); BASO % 0.4 % (0.0-1.0); EOS # 0.1 10^3/uL (0.0-0.5); EOS % 0.8 % (0.0-3.0); LYMPH # 1.2 10^3/uL (1.5-5.0); LYMPH % 12.5 % (24.0-44.0); MONO # 0.6 10^3/uL (0.0-0.8); MONO % 6.1 % (2.0-8.0); NEUTROPHILS # 7.9 10^3/uL (1.5-8.5); NEUTROPHILS % 79.5 % (36.0-66.0); PLATELET COUNT, AUTOMATED 251 10^3/uL (150-450)
[2025-10-09 19:21] LABS: ALT/SGPT 20 U/L (7.0-40); AST/SGOT 25 U/L (<34); CALCIUM LEVEL 9.4 MG/DL (8.3-10.6); CARBON DIOXIDE LEVEL 27 MMOL/L (20-31); CHLORIDE LEVEL 103 MMOL/L (98-107); CREATININE FOR GFR 0.70 MG/DL (0.55-1.30); GLOMERULAR FILTRATION RATE > 90.0 (>39); POTASSIUM SERUM 4.1 MMOL/L (3.5-5.1); SODIUM LEVEL 139 MMOL/L (136-145)
[2025-10-09] MEDS: ACETAMINOPHEN *IV* 500 MG in IV 1 EA IV ONE (19:35)
[2025-10-09] MEDS: IPRATROPIUM 0.5 MG/ALBUTEROL 2.5 MG INH SOL UD 3 ML NEB ONE ×2 (20:40)
[2025-10-09] MEDS ORDERED: ISOVUE-370 76% 100 ML VIAL As Ordered ONE (20:49)
[2025-10-10] MEDS ORDERED: PANT40TA29 PO (00:23)
[2025-10-10] MEDS ORDERED: IBUP200C25 PO (00:23)
[2025-10-10] MEDS ORDERED: ALEN70TA82 PO (00:23)
[2025-10-10] MEDS ORDERED: CYCL-707 PO (00:23)
[2025-10-10] MEDS ORDERED: BISO10TA14 PO (00:23)
[2025-10-10] MEDS ORDERED: ICY16LIQ TOP (00:26)
[2025-10-10] MEDS ORDERED: COLA100C5 PO (00:26)
[2025-10-10] MEDS ORDERED: DULO30CA9 PO (00:28)
[2025-10-10] MEDS ORDERED: HOME MED LIST COMPLETE! XX SCH (00:30)
[2025-10-10] MEDS: AZITHROMYCIN 250 MG TABLET PO SCH (00:52)
[2025-10-10] MEDS: cefTRIAXone SOD 1 GM in DEXTROSE 5% (D5W) ADV/MINI-BAG 50 ML IV SCH (00:53)
[2025-10-10] MEDS: IPRATROPIUM 0.5 MG/ALBUTEROL 2.5 MG INH SOL UD 3 ML NEB SCH (01:12)
[2025-10-10] MEDS: MORPHINE 2 MG/ML 1 ML VIAL IV ONE (04:41)
[2025-10-10 05:00] LABS: PLATELET COUNT, AUTOMATED 227 10^3/uL (150-450)
[2025-10-10 05:38] LABS: CALCIUM LEVEL 8.9 MG/DL (8.3-10.6); CARBON DIOXIDE LEVEL 24 MMOL/L (20-31); CHLORIDE LEVEL 104 MMOL/L (98-107); CREATININE FOR GFR 0.60 MG/DL (0.55-1.30); GLOMERULAR FILTRATION RATE > 90.0 (>39); POTASSIUM SERUM 4.9 MMOL/L (3.5-5.1); SODIUM LEVEL 136 MMOL/L (136-145)
[2025-10-10] MEDS ORDERED: FLUTICASONE PROPIONATE 0.05% NASAL SPRAY 16 GM NARES PRN (08:20)
[2025-10-10 08:30] VITALS: BP 124/63; TEMP 97.1; O2SAT 92
[2025-10-10] MEDS ORDERED: ENOXAPARIN 40 MG/0.4 ML SYRINGE (J1650 PER 10MG) SC SCH (09:00)
[2025-10-10] MEDS: LEVALBUTEROL 1.25 MG 0.5ML CONCENTRATE NEB INH PRN (09:08)
[2025-10-10] MEDS: TIOTROPIUM BROM 2.5MCG/ACTUATION 4GM INH INH SCH (09:08)
[2025-10-10] MEDS: SYMBICORT 160/4.5MCG INHALER 6GM INH SCH (09:08)
[2025-10-10] MEDS: KETOROLAC 30 MG/ML 1 ML VIAL IV ONE (09:26)
[2025-10-10] MEDS: PANTOPRAZOLE 40MG TAB PO SCH (10:01)
[2025-10-10] MEDS: MONTELUKAST 10 MG TAB PO SCH (10:01)
[2025-10-10] MEDS: ATORVASTATIN 20 MG TAB PO SCH (10:01)
[2025-10-10] MEDS: ACETAMINOPHEN 500 MG TAB PO SCH (10:03)
[2025-10-10] MEDS: ENOXAPARIN 30 MG/0.3 ML SYRINGE (J1650 PER 10MG) SC SCH (10:04)
[2025-10-10] MEDS: LIDOCAINE 5% PATCH TD SCH (11:51)
[2025-10-10] MEDS ORDERED: PILL CUTTER 1 EACH XX PRN (11:55)
[2025-10-10 13:38] VITALS: BP 142/71; TEMP 97; O2SAT 95
[2025-10-10] MEDS: ACETAMINOPHEN 325 MG TAB PO SCH (15:58)
[2025-10-10 16:06] VITALS: BP 142/74; TEMP 98.7; O2SAT 88
[2025-10-10 20:00] VITALS: BP 146/67; TEMP 99.2; O2SAT 93
[2025-10-11] VITALS (7 sets, daily range): BP systolic 106–140; BP diastolic 53–65; TEMP 98.3–98.8; O2SAT 93–98
[2025-10-11] MEDS: KETOROLAC 30 MG/ML 1 ML VIAL IV PRN (02:11)
[2025-10-11 06:43] LABS: BASO # 0.0 10^3/uL (0.0-0.2); BASO % 0.0 % (0.0-1.0); EOS # 0.0 10^3/uL (0.0-0.5); EOS % 0.0 % (0.0-3.0); LYMPH # 0.6 10^3/uL (1.5-5.0); LYMPH % 8.5 % (24.0-44.0); MONO # 0.3 10^3/uL (0.0-0.8); MONO % 4.9 % (2.0-8.0); NEUTROPHILS # 5.7 10^3/uL (1.5-8.5); NEUTROPHILS % 86.2 % (36.0-66.0); PLATELET COUNT, AUTOMATED 216 10^3/uL (150-450)
[2025-10-11 07:49] LABS: CALCIUM LEVEL 8.4 MG/DL (8.3-10.6); CARBON DIOXIDE LEVEL 24.0 MMOL/L (20-31); CHLORIDE LEVEL 107.0 MMOL/L (98-107); CREATININE FOR GFR 0.73 MG/DL (0.55-1.30); GLOMERULAR FILTRATION RATE 86.2 (>39); POTASSIUM SERUM 4.6 MMOL/L (3.5-5.1); SODIUM LEVEL 139.0 MMOL/L (136-145)
[2025-10-11] MEDS: MIRALAX *UNIT DOSE* 17 GM PACKET PO SCH (10:02)
[2025-10-11] MEDS: SENNOSIDES/DOCUSATE SODIUM 8.6 MG/50MG TAB PO SCH (10:02)
[2025-10-12 05:03] VITALS: BP 120/80; TEMP 98.3; O2SAT 94
[2025-10-12 05:57] LABS: BASO # 0.0 10^3/uL (0.0-0.2); BASO % 0.0 % (0.0-1.0); EOS # 0.0 10^3/uL (0.0-0.5); EOS % 0.0 % (0.0-3.0); LYMPH # 0.4 10^3/uL (1.5-5.0); LYMPH % 6.0 % (24.0-44.0); MONO # 0.2 10^3/uL (0.0-0.8); MONO % 3.1 % (2.0-8.0); NEUTROPHILS # 6.1 10^3/uL (1.5-8.5); NEUTROPHILS % 90.6 % (36.0-66.0); PLATELET COUNT, AUTOMATED 232 10^3/uL (150-450)
[2025-10-12 06:24] LABS: CALCIUM LEVEL 8.0 MG/DL (8.3-10.6); CARBON DIOXIDE LEVEL 26 MMOL/L (20-31); CHLORIDE LEVEL 106 MMOL/L (98-107); CREATININE FOR GFR 0.66 MG/DL (0.55-1.30); GLOMERULAR FILTRATION RATE > 90.0 (>39); POTASSIUM SERUM 4.3 MMOL/L (3.5-5.1); SODIUM LEVEL 138 MMOL/L (136-145)
[2025-10-12 11:47] VITALS: BP 129/66; TEMP 97.5; O2SAT 96
[2025-10-12] MEDS: IPRATROPIUM 0.5 MG/ALBUTEROL 2.5 MG INH SOL UD 3 ML NEB SCH (14:00)
[2025-10-12 20:00] VITALS: BP 152/78; TEMP 98.8; O2SAT 97
[2025-10-12] MEDS: guaiFENesin ER TABLET 600 MG TAB PO PRN (20:18)
[2025-10-13 04:00] VITALS: BP 119/59; TEMP 98.1; O2SAT 95
[2025-10-13 06:09] LABS: BASO # 0.0 10^3/uL (0.0-0.2); BASO % 0.0 % (0.0-1.0); EOS # 0.0 10^3/uL (0.0-0.5); EOS % 0.3 % (0.0-3.0); LYMPH # 1.7 10^3/uL (1.5-5.0); LYMPH % 24.4 % (24.0-44.0); MONO # 0.7 10^3/uL (0.0-0.8); MONO % 9.7 % (2.0-8.0); NEUTROPHILS # 4.5 10^3/uL (1.5-8.5); NEUTROPHILS % 65.2 % (36.0-66.0); PLATELET COUNT, AUTOMATED 220 10^3/uL (150-450)
[2025-10-13 06:28] LABS: CALCIUM LEVEL 7.9 MG/DL (8.3-10.6); CARBON DIOXIDE LEVEL 27 MMOL/L (20-31); CHLORIDE LEVEL 109 MMOL/L (98-107); CREATININE FOR GFR 0.60 MG/DL (0.55-1.30); GLOMERULAR FILTRATION RATE > 90.0 (>39); POTASSIUM SERUM 4.0 MMOL/L (3.5-5.1); SODIUM LEVEL 143 MMOL/L (136-145)
[2025-10-13] MEDS: predniSONE 20 MG TAB PO SCH (08:33)
[2025-10-13 08:37] VITALS: BP 157/72
[2025-10-13] MEDS: CEFPODOXIME PROXETIL 200 MG TABLET PO SCH (08:37)
[2025-10-13 12:00] VITALS: BP 163/73; TEMP 98.6; O2SAT 91
[2025-10-13] MEDS ORDERED: LIDO5TD TD (12:23)
[2025-10-13] MEDS ORDERED: LEVO1TAB40 PO (12:23)
[2025-10-13] MEDS ORDERED: PRED20TA PO (12:23)
[2025-10-13] MEDS ORDERED: NICO21PAT TOP (12:23)
== END 2025-10-13 16:25 | disposition home or self-care (01) | DRG 177 ==
LOC: EDBD 18:16 → M ED 18:16 → M ED INP 22:57 → M MS4PR 10-10 16:06
PROVIDERS: ADMIT Internal Medicine; ATTEND Student in an Organized Health Care Education/Training Program
DX: J15.1 Pneumonia due to Pseudomonas (principal); E43 Unspecified severe protein-calorie malnutrition; J44.1 Chronic obstructive pulmonary disease with (acute) exacerbation; Z68.1 Body mass index [BMI] 19.9 or less, adult; F17.200 Nicotine dependence, unspecified, uncomplicated; R91.8 Other nonspecific abnormal finding of lung field; M94.0 Chondrocostal junction syndrome [Tietze]; I10 Essential (primary) hypertension; E78.5 Hyperlipidemia, unspecified; F41.9 Anxiety disorder, unspecified; K21.9 Gastro-esophageal reflux disease without esophagitis; Z79.899 Other long term (current) drug therapy; Z91.010 Allergy to peanuts